=== PATIENT | female | born 1980 | race Caucasian/White ===

== ENCOUNTER 2016-09-15 22:11 | Emergency (ER) | payer OTHER ==
[2016-09-15] MEDS ORDERED: SODIUM CHLORIDE 0.9% 1,000 ML IV SCH (22:52)
[2016-09-15] MEDS ORDERED: ACETAMINOPHEN TAB 500 MG TAB PO STA (22:52)
[2016-09-15] MEDS ORDERED: RX INFO: IV CONTRAST WAS GIVEN 1 EACH MISC MISCELLANE PRN (22:54)
--- NOTE | 2016-09-15 23:04 | ED ---
General Adult HPI - General Chief complaint: Skin/Abscess/Foreign Body Stated complaint: lump on neck Time Seen by Provider: 09/15/16 22:35 Source: patient Mode of arrival: ambulatory Limitations: no limitations - History of Present Illness Initial comments: Patient is a previously healthy 36-year-old female who presents to the emergency department this evening for evaluation of a lump on the right side of her neck. Patient states that last week she was experiencing some viral URI- like symptoms, she attributed this to seasonal ALLERGIES and treated it symptomatically. She reports her symptoms have resolved. Patient states that she woke this morning with a swelling to her right side of her neck inferior to her ear. She states she thought this was a muscle spasm so she took some ibuprofen in the morning and attempted to dissuade the symptoms out. Patient reports that the swelling has persisted throughout the day and has become progressively more tender she has reevaluated it. Patient decided to come to the emergency department for further evaluation. Patient does report feeling somewhat fatigued but denies any subjective fever, chills nausea or vomiting. Patient reports she had dental work done in May but has had no subsequent for. She denies any recent oral infections or pharyngitis like symptoms. Patient denies any change in hearing, pain in the ears or tinnitus. She denies any visual changes or headaches. She denies any trauma to the neck. Patient reports no change in her voice or difficulty in swallowing. Reports she follows closely with her primary care physician and has been evaluated for thyroid problems in the past. She was advised to her thyroid levels were within the normal range but were low. She reports she's never had an ultrasound of her thyroid. - Related Data Previous Rx's Medication Instructions Recorded Clindamycin [Cleocin] 450 mg PO Q6H #28 capsule 09/16/16 Ibuprofen [Motrin] 800 mg PO Q8H #30 tab 09/16/16 Allergies Allergy/AdvReac Type Severity Reaction Status Date / Time venom-honey bee Allergy Swelling Verified 09/15/16 22:41 [bee venom (honey bee)] Review of Systems ROS Statement: Those systems with pertinent positive or pertinent negative responses have been documented in the HPI. ROS Other: All systems not noted in ROS Statement are negative. Constitutional: Denies: fever, chills Eyes: Denies: eye pain, vision change ENT: Denies: ear pain, throat pain, dental pain, hearing loss, epistaxis, congestion Respiratory: Denies: cough, dyspnea, wheezes Cardiovascular: Denies: chest pain, palpitations Endocrine: Denies: fatigue Gastrointestinal: Denies: abdominal pain, nausea Genitourinary: Denies: urgency, dysuria Musculoskeletal: Denies: back pain Skin: Denies: rash, lesions, change in color Neurological: Denies: headache, weakness, numbness, paresthesias, confusion, abnormal gait, vertigo Psychiatric: Denies: anxiety, depression Hematological/Lymphatic: Reports: swollen glands. Denies: easy bleeding, easy bruising Past Medical History Past Medical History: No Reported History History of Any Multi-Drug Resistant Organisms: None Reported Past Surgical History: Section Past Anesthesia/Blood Transfusion Reactions: Motion Sickness, Postoperative Nausea & Vomiting (PONV) Past Psychological History: No Psychological Hx Reported Smoking Status: Never smoker Past Alcohol Use History: None Reported Past Drug Use History: None Reported - Past Family History Father Family Medical History: Diabetes Mellitus, Hypertension, Myocardial Infarction ( [place]) Additional Family Medical History / Comment(s): General Exam Limitations: no limitations General appearance: alert, in no apparent distress, obese Head exam: Present: atraumatic, normocephalic, normal inspection, other (Scalp normal without lesions) Eye exam: Present: normal appearance, PERRL, EOMI. Absent: scleral icterus, conjunctival injection, periorbital swelling ENT exam: Present: normal exam, mucous membranes moist, TM's normal bilaterally , normal external ear exam Neck exam: Present: tenderness, lymphadenopathy (And her lymphadenopathy in the right posterior cervical chain). Absent: meningismus Respiratory exam: Present: normal lung sounds bilaterally. Absent: respiratory distress, wheezes, rales, rhonchi, stridor Cardiovascular Exam: Present: regular rate, normal rhythm, normal heart sounds. Absent: systolic murmur, diastolic murmur, rubs, gallop, clicks GI/Abdominal exam: Present: soft, normal bowel sounds. Absent: distended, tenderness, guarding, rebound, rigid Rectal exam: Present: deferred Extremities exam: Present: normal inspection, full ROM, normal capillary refill. Absent: tenderness, pedal edema, joint swelling, calf tenderness Back exam: Present: normal inspection Neurological exam: Present: alert, oriented X3, CN II-XII intact Psychiatric exam: Present: normal affect, normal mood Skin exam: Present: warm, dry, intact, normal color. Absent: rash Course Vital Signs 09/15/16 09/15/16 09/15/16 22:24 22:58 23:13 Temperature 100.8 F H Pulse Rate 99 102 H 99 Respiratory 20 18 18 Rate Blood Pressure 173/75 152/63 147/61 O2 Sat by Pulse 98 98 98 Oximetry 09/15/16 09/15/16 09/16/16 23:28 23:43 00:13 Temperature 100.0 F H Pulse Rate 103 H 102 H 102 H Respiratory 18 18 18 Rate Blood Pressure 152/74 147/65 131/63 O2 Sat by Pulse 98 98 96 Oximetry - Reevaluation(s) Reevaluation #1: Patient was reevaluated, is sitting comfortably in the ER bed. IV fluids are infusing. Heart rate is noted to have improved to high 90s. CT and lab results were discussed with the patient. Advised her that CT findings are consistent with acute lymphadenitis. Advised I'll be discharging her home on clindamycin. I discussed with her the side effect of diarrhea and advised she take probiotics with taking this medication. 09/16/16 00:50 EKG Findings - EKG Comments: EKG Findings:: EKG at 2300 rate of 106 rhythm is sinus tachycardia normal axis, normal intervals, OH 138 QRS 80 QTc 441. There is no acute ST elevations or depressions. No evidence of acute ischemia or infarction. Medical Decision Making - Medical Decision Making The patient was seen and evaluated Vital signs were reviewed, revealed tachycardia and fever History obtained from the patient Physical exam with a tender lymphadenopathy in the right neck A sepsis workup and CT of soft tissues of the neck was ordered Labs revealed mild leukocytosis with neutrophilia CT reveals lymphadenitis Results were discussed with the patient, advised the patient that she'll be discharged home on clindamycin. Discussed with the patient the side effect of clindamycin causing diarrhea and advised she be on probiotics will take this medication. Advised the patient to follow up with her primary care physician by the end of the week for reevaluation of her lymphadenitis. Advised patient to return to the emergency department for any acute worsening of the pain or swelling in her neck, worsening fever, inability to tolerate oral intake fourth keep down her antibiotics. Advised the patient that her CT did reveal a thyroid nodule she needs to discuss this with her primary care physician and have it followed up with an outpatient ultrasound. Patient expressed understanding. All questions pertaining to care were answered to the best of my ability. Patient was discharged home with Motrin, clindamycin for acute lymphadenitis. Patient was in stable condition upon discharge home. - Lab Data Result diagrams: 09/15/16 22:53 09/15/16 22:53 Lab Results 09/15/16 09/15/16 09/15/16 Range/Units 22:53 22:53 22:53 WBC 10.2 (3.8-10.6) k/uL RBC 4.86 (3.80-5.40) m/uL Hgb 12.1 (11.4-16.0) gm/dL Hct 38.7 (34.0-46.0) % MCV 79.6 L (80.0-100.0) fL MCH 25.0 (25.0-35.0) pg MCHC 31.4 (31.0-37.0) g/dL RDW 14.5 (11.5-15.5) % Plt Count 290 (150-450) k/uL Neutrophils % 78 % Lymphocytes % 15 % Monocytes % 5 % Eosinophils % 1 % Basophils % 0 % Neutrophils # 7.9 H (1.3-7.7) k/uL Lymphocytes # 1.5 (1.0-4.8) k/uL Monocytes # 0.5 (0-1.0) k/uL Eosinophils # 0.1 (0-0.7) k/uL Basophils # 0.0 (0-0.2) k/uL PT (9.0-12.0) sec INR (<1.2) APTT (22.0-30.0) sec Sodium 140 (137-145) mmol/L Potassium 4.2 (3.5-5.1) mmol/L Chloride 104 (98-107) mmol/L Carbon Dioxide 26 (22-30) mmol/L Anion Gap 10 mmol/L BUN 8 (7-17) mg/dL Creatinine 0.60 (0.52-1.04) mg/dL Est GFR (MDRD) Af Amer >60 (>60 ml/min/1.73 sqM) Est GFR (MDRD) Non-Af >60 (>60 ml/min/1.73 sqM) Glucose 94 (74-99) mg/dL Plasma Lactic Acid Eduardo 0.8 (0.7-2.0) mmol/L Calcium 9.5 (8.4-10.2) mg/dL Total Bilirubin 0.4 (0.2-1.3) mg/dL AST 19 (14-36) U/L ALT 37 (9-52) U/L Alkaline Phosphatase 84 (38-126) U/L Total Protein 7.3 (6.3-8.2) g/dL Albumin 4.2 (3.5-5.0) g/dL Urine Color Urine Appearance (Clear) Urine pH (5.0-8.0) Ur Specific [place] (1.001-1.035) Urine Protein (Negative) Urine Glucose (UA) (Negative) Urine Ketones (Negative) Urine Blood (Negative) Urine Nitrite (Negative) Urine Bilirubin (Negative) Urine Urobilinogen (<2.0) mg/dL Ur Leukocyte Esterase (Negative) 09/15/16 09/15/16 Range/Units 22:53 23:50 WBC (3.8-10.6) k/uL RBC (3.80-5.40) m/uL Hgb (11.4-16.0) gm/dL Hct (34.0-46.0) % MCV (80.0-100.0) fL MCH (25.0-35.0) pg MCHC (31.0-37.0) g/dL RDW (11.5-15.5) % Plt Count (150-450) k/uL Neutrophils % % Lymphocytes % % Monocytes % % Eosinophils % % Basophils % % Neutrophils # (1.3-7.7) k/uL Lymphocytes # (1.0-4.8) k/uL Monocytes # (0-1.0) k/uL Eosinophils # (0-0.7) k/uL Basophils # (0-0.2) k/uL PT 9.9 (9.0-12.0) sec INR 1.0 (<1.2) APTT 25.0 (22.0-30.0) sec Sodium (137-145) mmol/L Potassium (3.5-5.1) mmol/L Chloride (98-107) mmol/L Carbon Dioxide (22-30) mmol/L Anion Gap mmol/L BUN (7-17) mg/dL Creatinine (0.52-1.04) mg/dL Est GFR (MDRD) Af Amer (>60 ml/min/1.73 sqM) Est GFR (MDRD) Non-Af (>60 ml/min/1.73 sqM) Glucose (74-99) mg/dL Plasma Lactic Acid Eduardo (0.7-2.0) mmol/L Calcium (8.4-10.2) mg/dL Total Bilirubin (0.2-1.3) mg/dL AST (14-36) U/L ALT (9-52) U/L Alkaline Phosphatase (38-126) U/L Total Protein (6.3-8.2) g/dL Albumin (3.5-5.0) g/dL Urine Color Light Yellow Urine Appearance Clear (Clear) Urine pH 6.5 (5.0-8.0) Ur Specific [place] 1.014 (1.001-1.035) Urine Protein Negative (Negative) Urine Glucose (UA) Negative (Negative) Urine Ketones Negative (Negative) Urine Blood Negative (Negative) Urine Nitrite Negative (Negative) Urine Bilirubin Negative (Negative) Urine Urobilinogen <2.0 (<2.0) mg/dL Ur Leukocyte Esterase Negative (Negative) Disposition Clinical Impression: Lymphadenitis, acute, Thyroid nodule Disposition: HOME SELF-CARE Condition: Good Instructions: Clindamycin (By mouth), Lymphadenopathy (ED) Prescriptions: Clindamycin [Cleocin] 450 mg PO Q6H #28 capsule Ibuprofen [Motrin] 800 mg PO Q8H #30 tab Referrals: Eliz Souza MD [Primary Care Provider] - 1-2 days Time of Disposition: 00:58
[2016-09-15 23:06] VITALS: RESP 18
[2016-09-15] MEDS: SODIUM CHLORIDE 0.9% 500 ML IV SCH ×2 (23:10→23:57)
[2016-09-15 23:15] LABS: Basophils % (A) 0 %; CH 25.5; CHCM 32.1; Eosinophils # (A) 0.1 k/uL (0-0.7); Eosinophils % (A) 1 %; HCT 38.7 % (34.0-46.0); HDW 2.76; HGB 12.1 gm/dL (11.4-16.0); Luc # (Auto) 0.11; Luc % (Auto) 1; Lymphocytes # (A) 1.5 k/uL (1.0-4.8); Lymphocytes % (A) 15 %; MCHC 31.4 g/dL (31.0-37.0); MCV 79.6 fL (80.0-100.0); Mean Platelet Volume 7.6; Monocytes # (A) 0.5 k/uL (0-1.0); Monocytes % (A) 5 %; Neutrophils # (A) 7.9 k/uL (1.3-7.7); Neutrophils % (A) 78 %; RBC 4.86 m/uL (3.80-5.40); RDW 14.5 % (11.5-15.5); WBC 10.2 k/uL (3.8-10.6); WBC (Perox) 9.89
[2016-09-15 23:25] LABS: ALT 37 U/L (9-52); AST 19 U/L (14-36); Alkaline Phosphatase 84 U/L (38-126); Anion Gap 10 mmol/L; Blood Urea Nitrogen 8 mg/dL (7-17); Calcium 9.5 mg/dL (8.4-10.2); Carbon Dioxide 26 mmol/L (22-30); Chloride 104 mmol/L (98-107); Glucose 94 mg/dL (74-99); Non-African American GFR(MDRD) >60 (>60 ml/min/1.73 sqM); Potassium 4.2 mmol/L (3.5-5.1); Sodium 140 mmol/L (137-145); Total Bilirubin 0.4 mg/dL (0.2-1.3); Total Protein 7.3 g/dL (6.3-8.2)
[2016-09-15 23:26] LABS: Prothrombin Time 9.9 sec (9.0-12.0)
[2016-09-16 00:13] LABS: Appearance,Urine Clear (Clear); Bilirubin,Urine Negative (Negative); Glucose,Urine (UA) Negative (Negative); Ketones,Urine Negative (Negative); Leukocyte Esterase,Urine Negative (Negative); Nitrite,Urine Negative (Negative); PH, Urine 6.5 (5.0-8.0); Protein,Urine Negative (Negative); Specific Gravity,Urine 1.014 (1.001-1.035); UA Billing (MACRO vs. MICRO) CHEM; Urobilinogen,Urine <2.0 mg/dL (<2.0)
[2016-09-16] MEDS: SODIUM CHLORIDE 0.9% 500 ML IV SCH (00:29)
--- NOTE | 2016-09-16 00:33 | CT ---
EXAM: CT Neck With Intravenous Contrast CLINICAL HISTORY: Reason: Pain TECHNIQUE: Axial computed tomography images of the neck with intravenous contrast. CTDI is 27.80 mGy and DLP is 886.80 mGy-cm. This CT exam was performed using one or more of the following dose reduction techniques: automated exposure control, adjustment of the mA and/or kV according to patient size, and/or use of iterative reconstruction technique. CONTRAST: 100 mL of Omni 300 administered intravenously. COMPARISON: None FINDINGS: Nasopharynx: Unremarkable. Oropharynx: Unremarkable. No significant tonsillar enlargement. No peritonsillar abscess. Hypopharynx: Unremarkable. Larynx: Unremarkable. Normal epiglottis. Trachea: Unremarkable. Retropharyngeal space: Unremarkable. Submandibular/parotid glands: Unremarkable. Glands are normal in size. Thyroid: 3.1 x 2.1 cm solid enhancing nodule within the lower pole of the left lobe of the thyroid gland. Bones/joints: No acute fracture. Soft tissues: Unremarkable. Vasculature: No acute findings. Lymph nodes: 11 mm short axis right level III lymph node. 11 mm short axis right level II lymph node. Numerous smaller level II lymph nodes on the right with fat stranding around the lymph nodes. Fat stranding is visualized extending out around the sternocleidomastoid mastoid muscle as well as the paraspinous musculature. Lung apices: Unremarkable as visualized. IMPRESSION: 1. Mildly enlarged right level II and level III lymph nodes along with numerous smaller non-pathologically enlarged level II lymph nodes. Fat stranding around these level II lymph nodes indicate acute lymphadenitis. No evidence of neck abscess. 2. Solid thyroid nodule located within the lower pole of the left thyroid lobe measuring 3.1 x 2.1 cm. Nonemergent ultrasonographic evaluation of the thyroid is recommended for further evaluation.
[2016-09-16] MEDS ORDERED: CLINDAMYCIN 150 MG CAP PO STA (00:55)
[2016-09-16 01:17] VITALS: BP 132/59; PULSE 99; TEMP 99.2
== END 2016-09-16 01:16 | disposition home or self-care (01) ==
LOC: EC 22:11
DX: I88.9 Nonspecific lymphadenitis, unspecified (principal); E04.1 Nontoxic single thyroid nodule; R00.0 Tachycardia, unspecified; Z91.030 Bee allergy status
CPT/HCPCS: 36415; 93005; 80053; 83605; 85025; 85610; 85730; 81003; 87040; 87086; 70491; 99284; 96360; 96361; Q9967

== ENCOUNTER → 2016-10-02 | Outpatient (CLI) | payer OTHER ==
[2016-10-02 09:38] LABS: CH 25.7; CHCM 31.9; HCT 35.5 % (34.0-46.0); HGB 11.4 gm/dL (11.4-16.0); Hypochromasia Slight; MCH 25.8 pg (25.0-35.0); MCV 80.6 fL (80.0-100.0); Mean Platelet Volume 8.1; RDW 15.6 % (11.5-15.5); WBC 7.5 k/uL (3.8-10.6)
[2016-10-02 09:44] LABS: Potassium 4.2 mmol/L (3.5-5.1)
--- NOTE | 2016-10-02 09:54 | CT ---
EXAMINATION TYPE: CT soft tissue neck w con DATE OF EXAM: 10/02/2016 HISTORY: Mass, swelling on right side, thyroid nodule left. Fever and chills. COMPARISON: CT soft tissue neck dated 09/15/2016. CT DLP: 740.70 mGycm. Automated Exposure Control for Dose Reduction was Utilized. TECHNIQUE: CT scan of the neck is performed with IV Contrast, patient injected with 100 ml mL of Omn ipaque 300, axial images are obtained, coronal and sagittal reformatted images are reviewed. FINDINGS: Lymph nodes: The previously seen 11 mm short axis right level 3 lymph node has decreased in size 9 mm . The previously seen 11 mm short axis level 2 lymph node has also decreased in size measuring 8 mm. Numerous other level 2 lymph nodes on the right that are rounded in morphology persists but have over all decreased in size. Degree of fat stranding is also improved in the interim although mild fat stra nding persists. No fluid collection to suggest abscess is seen. Fat stranding is now localized betwee n the paraspinous musculature and sternocleidomastoid. No evidence of jugular vein thrombosis. Airway: No gross abnormality seen. Parotid/submandibular glands: No gross abnormality seen. Carotid/Vascular Structures: No significant stenosis. Osseous Structures: Osseous structures are intact and unremarkable. Other: There is redemonstration of a heterogenous approximately 3.1 x 2.1 cm mass within the left lob e of thyroid with extension of the thyroid tissue and mass into the superior mediastinum, substernall y. IMPRESSION: 1. Overall improvement in the degree of right-sided lymphadenopathy and fat stranding surrounding the level 2 and level 3 lymph nodes. Findings are most compatible with resolving lymphadenitis although continued follow-up is recommended to exclude other etiologies such as lymphoma or head and neck canc er such as squamous cell carcinoma. No adjacent jugular vein thrombosis is seen. 2. Redemonstration of a complex left thyroid mass within an enlarged substernal thyroid gland for whi ch further characterization with ultrasound is again recommended. Note the patient is scheduled for u ltrasound of the thyroid today (10/02/2016).
--- NOTE | 2016-10-02 10:11 | US ---
EXAMINATION TYPE: US thyroid st tissue head/neck DATE OF EXAM: 10/02/2016 COMPARISON: CT 2017 CLINICAL HISTORY: E04.1 thyroid nodule. GLAND SIZE: Right Lobe: 4.8 x 1.9 x 2.0 cm Overall Parenchyma: heterogenous Left Lobe: 6.0 x 3.8 x 2.8 cm Overall Parenchyma: heterogeneous Isthmus Thickness: 0.6 cm NODULES RIGHT: # of nodules measured on right: 2 1. 1.1 X 1.1 x 1.0 cm hypoechoic mixed nodule at the mid pole with well-defined margins; present wi th microcalcifications. This nodule is wider than tall and shows no intranodular vascularity. Prior size: no prior US 2. 0.6 X 0.6 x 0.5 cm hypoechoic solid nodule at the mid lower pole with well-defined margins; . Th is nodule is wider than tall and shows no intranodular vascularity. LEFT: # of nodules measured on left: 1 1. 4.5 X 3.5 x 2.7 cm hypoechoic mixed nodule at the mid pole with well-defined margins. This nodul e is wider than tall and shows intranodular vascularity. Prior size: See CT ISTHMUS: # of nodules measured in the isthmus: [address] report for lymphadenopathy. IMPRESSION: Bilateral thyroid nodules. Findings correlate with the CT findings. Consider correlation with nuclear medicine thyroid scan.
== END | disposition home or self-care (01) ==
LOC: RADCTMAIN 09:00
PROVIDERS: ATTEND Otolaryngology Facial Plastic Surgery
DX: E07.89 Other specified disorders of thyroid (principal); E04.9 Nontoxic goiter, unspecified; R59.0 Localized enlarged lymph nodes
CPT/HCPCS: 84439; 84481; 80051; 84443; 85027; 76536; 70491; Q9967

== ENCOUNTER 2016-10-27 12:38 | Day surgery (SDC) | payer OTHER ==
[2016-10-27 13:08] VITALS: TEMP 97.4
--- NOTE | 2016-10-27 13:51 | US ---
ULTRASOUND GUIDED FNA THYROID BIOPSY: CLINICAL HISTORY: 1 cm right thyroid nodule and 4.5 cm left thyroid nodule FINDINGS: The procedure was explained to the patient. The risks, complications, benefits and alternatives were discussed and any questions were answered. Informed consent was obtained. Patient was placed supin e on the ultrasound table and prepped and draped in the usual sterile fashion. Utilizing a 25 gauge needle, five passes were made into the right and left thyroid nodules requested. Patient was stable throughout the procedure. Pathology is pending. All elements of maximal barrier technique were utilized. IMPRESSION: 1. Successful ultrasound guided FNA thyroid biopsy.
[2016-10-27 13:59] VITALS: BP 131/79; PULSE 81; RESP 16
== END 2016-10-27 14:00 | disposition home or self-care (01) ==
LOC: RADPROMAIN 12:38
PROVIDERS: ATTEND Otolaryngology Facial Plastic Surgery
DX: E04.2 Nontoxic multinodular goiter (principal)
CPT/HCPCS: 10022; 76942; 88173; 88305

== ENCOUNTER → 2018-06-08 | Outpatient (CLI) | payer OTHER ==
--- NOTE | 2018-06-08 13:13 | CT ---
EXAMINATION TYPE: CT chest wo/w con DATE OF EXAM: 06/08/2018 COMPARISON: NONE HISTORY: Pulmonary nodule CT DLP: 1761.00 mGycm. Automated Exposure Control for Dose Reduction was Utilized. TECHNIQUE: CT scan of the thorax is attempted following without and with IV Contrast, patient inject ed with 100 ml mL of Isovue 300. FINDINGS: Exam noted suboptimal secondary to patient's large body habitus, in addition post contrast images show poor intravascular opacification. LUNGS: The lungs are grossly clear. There is no pleural effusion or pneumothorax seen. The tracheo bronchial tree is patent. There is posterior right basilar nodule axial image 55 and coronal image 79 series 6 measuring 1.1 x 0.7 cm x 1.1 cm craniocaudal dimension. No additional suspicious nodules or masses are present. MEDIASTINUM: There are no greater than 1 cm hilar or mediastinal lymph nodes clearly identified. No cardiomegaly or pericardial effusion is seen. OTHER: Spine is straightened with multilevel mild spurring. IMPRESSION: Posterior right basilar 1.1 x 0.7 x 1.[address] at [address] as per Fleischner Society recommendations based on clinical correlation if patient does not have prior a t outside institute to assess for interval change.
== END | disposition home or self-care (01) ==
LOC: RADCTMAIN 10:55
PROVIDERS: ATTEND Family Medicine
DX: R91.1 Solitary pulmonary nodule (principal)
CPT/HCPCS: 71270; Q9967

== ENCOUNTER → 2018-07-16 | Outpatient (CLI) | payer OTHER ==
--- NOTE | 2018-07-18 14:10 | PE ---
Nuclear medicine PET/CT HISTORY: Pulmonary nodule, initial Patient received 10.1 mCi F-18 FDG intravenously in delayed scanning was performed from the skull bas e to the mid thighs. Localization and attenuation correction CT scan was performed. Correlation to CT chest 06/08/2018 neck and CHEST: The pulmonary nodule noted in the posterior lung base is again seen on the right, the re is a suggestion of central calcification, no suspicious hypermetabolic uptake. There is no mediast inal, axillary, or hilar adenopathy. No pleural or pericardial effusion. ABDOMEN: Spleen is enlarged. Probable gallstone within the gallbladder. No retroperitoneal adenopathy . Along the abdominal wall laterally at the level of the pelvis small area of increased uptake is not ed without definite underlying mass may be physiologic. No free fluid or pelvic adenopathy. Osseous structures are within normal limits. IMPRESSION: The lung nodule at the right lung base does not show associated hypermetabolic uptake, ex am may be limited by technical factors, the size of the nodule. Indeterminate focus of activity along the abdominal wall questionable clinical significance. Cholelithiasis. Splenomegaly.
== END | disposition home or self-care (01) ==
LOC: RADPETMAIN 13:40
PROVIDERS: ATTEND Nurse Practitioner
DX: R91.1 Solitary pulmonary nodule (principal); R16.1 Splenomegaly, not elsewhere classified; K80.20 Calculus of gallbladder without cholecystitis without obstruction
CPT/HCPCS: 78815; A9552

== ENCOUNTER → 2019-03-20 | Outpatient (CLI) | payer OTHER ==
--- NOTE | 2019-03-20 11:42 | CT ---
EXAMINATION TYPE: CT chest wo con DATE OF EXAM: 03/20/2019 COMPARISON: Chest CT June 08, 2018 and PET/CT May 16, 2018 HISTORY: Follow up to lung nodule CT DLP: 877.6 mGycm. Automated Exposure Control for Dose Reduction was Utilized. TECHNIQUE: CT scan of the thorax is performed without IV contrast. FINDINGS: LUNGS: Low lung volumes redemonstrated. The lungs are grossly clear, there is no new concerning paren chymal mass or nodule identified. Stable posterior right basilar nodule measuring 9 x 8 x 10 mm axia l image 52 series 3 and coronal image 95 that is noted ametabolic There is no pleural effusion or pne umothorax seen. The tracheobronchial tree is patent. MEDIASTINUM: Lack of IV contrast is noted to limit evaluation for mediastinal and especially hilar ad enopathy. There are no definitive greater than 1 cm hilar or mediastinal lymph nodes. No cardiomega ly or pericardial effusion is seen. OTHER: Intraluminal 1.9 cm gallstone axial image 56. Spine is straightened on sagittal images. IMPRESSION: Stable 1.0 cm posterior right basilar nodule. No new nodules evident.
== END | disposition home or self-care (01) ==
LOC: RADCTMAIN 11:07
PROVIDERS: ATTEND Internal Medicine Pulmonary Disease
DX: R91.1 Solitary pulmonary nodule (principal); G47.33 Obstructive sleep apnea (adult) (pediatric); G47.34 Idiopathic sleep related nonobstructive alveolar hypoventilation; E03.9 Hypothyroidism, unspecified; E66.01 Morbid (severe) obesity due to excess calories
CPT/HCPCS: 71250

== ENCOUNTER → 2019-11-07 | Outpatient (CLI) | payer OTHER ==
[2019-11-07 13:12] VITALS: BP 152/80; PULSE 85; TEMP 98.5; BMI 59.2
--- NOTE | 2019-11-07 15:38 | P.HPBAR ---
Bariatric H&P - History & Physicial H&P Date: 11/07/19 History & Physicial: Visit/CC: initial clinic visit Patient initial contact: Initial weight: Initial weight in pounds: Height: 5 ft 5 in Initial BMI: Last weight: Current weight: 161.479 kg Current weight in pounds: 356.00 Current BMI: 59.2 [place] body weight (based on NIH guidelines): 56.699 kg Excess body weight loss: The patient is a 39 year-old F who presents for Bariatric Assessment. Patient presents to the clinic today for new bariatric evaluation. Patient is interested in sleeve gastrectomy. Patient states her heaviest weight was 400 pounds. Patient had previous thyroid disease and underwent thyroidectomy. W eight has improved somewhat since that time. Finishing high school she was 20 or 50 pounds. Her weight has been affecting her more lately. Patient suffers from sleep apnea, hypothyroidism, anemia, various joint discomforts. Surgical history includes and thyroidectomy. No tobacco use. No significant reflux disease. Denies DVT or dysphagia. Patient is not interested in gastric bypass. Review of Systems The patient denies any acute changes in vision or hearing, no dysphagia or odynophagia, no chest pain or shortness of breath, no dysuria or hematuria, no headache, no runny nose, no rectal bleeding or melena, no unexplained weight loss Past Medical History Past Medical History: Sleep Apnea/CPAP/BIPAP, Thyroid Disorder History of Any Multi-Drug Resistant Organisms: None Reported Past Surgical History: Section Additional Past Surgical History / Comment(s): thyroidectomy Past Anesthesia/Blood Transfusion Reactions: Motion Sickness, Postoperative Nausea & Vomiting (PONV) Past Psychological History: No Psychological Hx Reported Smoking Status: Never smoker Past Alcohol Use History: None Reported Past Drug Use History: None Reported - Past Family History Father Family Medical History: Diabetes Mellitus, Hypertension, Myocardial Infarction ([place]) Additional Family Medical History / Comment(s): Surgical - Exam Vital Signs Temp Pulse BP 98.5 F 85 152/80 11/07/19 13:11/07/19 13:11/07/19 13:09 Physical exam: General: Well-developed, well-nourished HEENT: Normocephalic, sclerae nonicteric Abdomen: Nontender, nondistended Extremities: No edema Neuro: Alert and oriented Bariatric Assessment & Plan (1) Morbid obesity with BMI of 50.0-59.9, adult Narrative/Plan: 39-year-old female with morbid obesity. Patient is interested in proceeding with sleeve gastrectomy. Risks and benefits of both lap sleeve gastrectomy and laparoscopic gastric bypass reviewed in detail. The expected did average weight losses with both procedures was reviewed as well. The patient understands that she might have better weight loss with gastric bypass but is not interested in the risk profile at this time. Patient will require supervised weight loss. We'll plan EGD 4-5 months from now. Will see the patient in the office following that to make final arrangements for sleeve gastrectomy. Status: Acute Bariatric Checklist Checklist: Plan: Checklist: EGD: 1. Hiatal hernia: 2. H. Pylori: HgbA1c: Vitamin D: Smoking: Never smoker Primary care physician referral: dr loo Psychiatry clearance: Cardiology clearance: Sleep study: Diet journal: VTE risk score: VTE risk level: Rehab needs at discharge:
== END | disposition home or self-care (01) ==
LOC: BARWHC3 12:34
PROVIDERS: ATTEND Surgery
DX: E66.01 Morbid (severe) obesity due to excess calories (principal); Z68.43 Body mass index [BMI] 50.0-59.9, adult
CPT/HCPCS: 99211

== ENCOUNTER → 2020-06-13 | Outpatient (CLI) | payer OTHER ==
--- NOTE | 2020-06-13 11:54 | MM ---
Reason for exam: screening (asymptomatic). Baseline mammogram. History: Family history of breast cancer in maternal grandmother. Took hormonal contraceptives for 1 year beginning at age 17. Physical Findings: Nurse did not find any significant physical abnormalities on exam. MG Screening Mammo w CAD Bilateral CC and MLO view(s) were taken. There are scattered fibroglandular densities. There is no discrete abnormality. These results were verbally communicated with the patient and result sheet given to the patient on 06/13/20. ASSESSMENT: Benign, BI-RAD 2 RECOMMENDATION: Routine screening mammogram of both breasts in 1 year.
== END | disposition home or self-care (01) ==
LOC: RADMAMWWP 11:02
PROVIDERS: ATTEND Obstetrics & Gynecology
DX: Z12.31 Encounter for screening mammogram for malignant neoplasm of breast (principal); Z80.3 Family history of malignant neoplasm of breast
CPT/HCPCS: 77067

== ENCOUNTER 2020-07-23 10:16 | Day surgery (SDC) | payer OTHER ==
[2020-07-17 16:03] VITALS: BMI 57.4
[~2020-07-23 10:16] MED LIST: LACTATED RINGERS 1,000 ML IV SCH; LIDOCAINE 1% (10MG/ML) FOR IV START INTRADERMA PRN
[2020-07-23 10:49] VITALS: TEMP 99.1
[2020-07-23] MEDS ORDERED: LIDOCAINE 1% (10MG/ML) FOR IV START INTRADERMA ONE (11:00)
[2020-07-23] MEDS ORDERED: PROPOFOL 10 MG/ML 20 ML VIAL IV ONE (12:05)
[2020-07-23] MEDS ORDERED: LIDOCAINE 1% INJ 10MG/ML (20 ML MDV) ONE (12:05)
--- NOTE | 2020-07-23 12:20 | P.GSHP ---
History of Present Illness H&P Date: 07/23/20 Chief Complaint: Epigastric pain 40-year-old female being evaluated for sleep gastrectomy. Complaints of mild epigastric pain at times. No reflux. No dysphagia. Here for upper endoscopy. Past Medical History Past Medical History: Cancer, Sleep Apnea/CPAP/BIPAP, Thyroid Disorder Additional Past Medical History / Comment(s): Hx Thyroid Cancer 2017. CPAP use. History of Any Multi-Drug Resistant Organisms: None Reported Past Surgical History: Section, Tubal Ligation Additional Past Surgical History / Comment(s): Thyroidectomy. Past Anesthesia/Blood Transfusion Reactions: Motion Sickness, Postoperative Nausea & Vomiting (PONV) Past Psychological History: No Psychological Hx Reported Smoking Status: Never smoker Past Alcohol Use History: None Reported Past Drug Use History: None Reported - Past Family History Father Family Medical History: Diabetes Mellitus, Hypertension, Myocardial Infarction ([place]) Additional Family Medical History / Comment(s): . Medications and Allergies Home Medications Medication Instructions Recorded Confirmed Type Ferrous Sulfate, Dried [Iron] 64 mg PO DAILY 11/07/19 07/23/20 History Levothyroxine Sodium [Synthroid] 200 mcg PO QAM 11/07/19 07/23/20 History Cholecalciferol [Vitamin D3 (25 25 mcg PO DAILY 07/17/20 07/23/20 History Mcg = 1000 Iu)] Allergies Allergy/AdvReac Type Severity Reaction Status Date / Time venom-honey bee Allergy Swelling Verified 07/23/20 10:48 [bee venom (honey bee)] Surgical - Exam Vital Signs Temp Pulse Resp BP Pulse Ox 99.1 F 91 16 149/67 96 07/23/20 10:37 07/23/20 10:37 07/23/20 10:37 07/23/20 10:37 07/23/20 10:37 Physical exam: General: Well-developed, well-nourished HEENT: Normocephalic, sclerae nonicteric Abdomen: Nontender, nondistended Extremities: No edema Neuro: Alert and oriented Assessment and Plan (1) Epigastric pain Narrative/Plan: Will proceed with upper endoscopy. Current Visit: Yes Status: Acute Code(s): R10.13 - EPIGASTRIC PAIN SNOMED Code(s): 74135857
--- NOTE | 2020-07-23 12:29 | P.PCN ---
Date of Procedure: 07/23/20 Procedure(s) Performed: Preoperative Dx: Obesity, epigastric pain Postoperative Dx: Minimal gastritis Procedure: EGD with Bx Anesthesia: Sedation Endoscopist: Dr. Powell Specimens: Antrum Endoscopic Procedure: The patient was on the endoscopy table in the left decubitus position. The Olympus gastroscope was inserted into the oropharynx and passed under direct visualization to the region of the third portion of the duodenum. From that point the scope was slowly withdrawn inspecting all surfaces carefully. There were no neoplastic inflammatory or polypoid lesions throughout the duodenum. The pylorus was widely patent. The stomach was carefully inspected. There was minimal gastritis present. A biopsy of the antrum took place to rule out H. pylori. Retroflexion revealed a normal hiatus. The esophagus was then carefully examined. There were no neoplastic inflammatory or polypoid lesions throughout the visualized esophagus. The patient was then taken to the recovery room in stable condition per anesthesia guidelines. Recommendations: Await biopsy results. Follow-up in bariatric center.
[2020-07-23 12:51] VITALS: BP 110/70; PULSE 78; RESP 18
== END 2020-07-23 13:05 | disposition home or self-care (01) ==
LOC: ORWHC2ENDO 10:16
PROVIDERS: ATTEND Surgery
DX: K29.50 Unspecified chronic gastritis without bleeding (principal); E66.9 Obesity, unspecified; Z68.43 Body mass index [BMI] 50.0-59.9, adult; G47.30 Sleep apnea, unspecified; E07.9 Disorder of thyroid, unspecified; Z85.850 Personal history of malignant neoplasm of thyroid; E89.0 Postprocedural hypothyroidism; Z98.891 History of uterine scar from previous surgery; Z98.51 Tubal ligation status; Z83.3 Family history of diabetes mellitus; Z82.49 Family history of ischemic heart disease and other diseases of the circulatory system; Z79.890 Hormone replacement therapy; Z91.030 Bee allergy status
CPT/HCPCS: 81025; 88305; 43239; J2001; J2704

== ENCOUNTER → 2020-08-13 | Outpatient (CLI) | payer OTHER ==
[2020-08-13 13:52] VITALS: BP 126/81; PULSE 74; RESP 16; TEMP 98.4
[2020-08-13 14:56] LABS: HGB 11.7 gm/dL (11.4-16.0); MCH 25.7 pg (25.0-35.0); MCHC 32.4 g/dL (31.0-37.0); MCV 79.3 fL (80.0-100.0); Mean Platelet Volume 7.8; Platelet Count 231 k/uL (150-450); RBC 4.54 m/uL (3.80-5.40); RDW 14.5 % (11.5-15.5); WBC 6.3 k/uL (3.8-10.6)
--- NOTE | 2020-08-13 21:21 | P.BASOAP ---
Subjective Progress Note Date: 08/13/20 Principal diagnosis: Morbid obesity Patient returns for bariatric follow-up. Underwent EGD on 525. Patient found to have minimal gastritis. Says she has 1 more supervised weight loss visits. Objective - Vital Signs Vital signs: Vital Signs Temp 98.4 F 08/13/20 13:46 Pulse 74 08/13/20 13:46 Resp 16 08/13/20 13:46 BP 126/81 08/13/20 13:46 Pulse Ox - Exam Abdomen: Soft, nontender, nondistended - Labs CBC & Chem 7: 08/13/20 14:20 Labs: Abnormal Lab Results - Last 24 Hours (Table) 08/13/20 Range/Units 14:20 MCV 79.3 L (80.0-100.0) fL Assessment/Plan (1) Morbid obesity with BMI of 50.0-59.9, adult Narrative/Plan: Patient doing well at this time. No significant changes to the recent history and physical. Patient remains interested in surgical weight loss in the form of sleeve gastrectomy. Surgical consent form reviewed in detail. All questions answered. We'll proceed. Plan: Date: 08/13/20 Initial Weight: Initial BMI: Current Weight: Current BMI: Type of Surgery: Total Volume in Band: Previous Volume: Volume Removed: Volume Added: Band Size:
[2020-08-13 21:42] LABS: Hemoglobin A1C 5.1 % (4.0-6.0)
[2020-08-13 22:32] LABS: African American GFR (CKD) 130.3 (60.0-200.0); Albumin 4.3 g/dL (3.80-4.90); Albumin/Globulin Ratio 1.59 (1.60-3.17); Anion Gap 6.1 mmol/L (4.00-12.00); Calcium 8.7 mg/dL (8.7-10.3); Carbon Dioxide 25.9 mmol/L (21.6-31.8); Globulin 2.7 g/dL (1.6-3.3); Non-African American GFR(CKD) 112.4 (60.0-200.0); Potassium 4.1 mmol/L (3.5-5.5); Total Bilirubin 0.4 mg/dL (0.2-1.2)
[2020-08-13 22:40] LABS: Folate, Serum 9.1 ng/mL
== END | disposition home or self-care (01) ==
LOC: BARWHC3 13:05
PROVIDERS: ATTEND Surgery
DX: E66.01 Morbid (severe) obesity due to excess calories (principal); K90.89 Other intestinal malabsorption; E55.9 Vitamin D deficiency, unspecified; Z68.43 Body mass index [BMI] 50.0-59.9, adult
CPT/HCPCS: 84425; 80053; 82607; 82746; 83540; 85027; 82306; 83036; 93005; G0463; 99211

== ENCOUNTER → 2020-08-26 | Outpatient (CLI) | payer OTHER ==
[2020-08-26 11:47] VITALS: BMI 56.9
== END | disposition home or self-care (01) ==
LOC: BARWHC3 08:44
PROVIDERS: ATTEND Surgery
DX: E66.01 Morbid (severe) obesity due to excess calories (principal); Z71.3 Dietary counseling and surveillance
CPT/HCPCS: 97804

== ENCOUNTER → 2020-11-08 | Outpatient (CLI) | payer OTHER ==
[2020-11-08 12:55] LABS: Basophils % (A) 0 %; Eosinophils # (A) 0.1 k/uL (0-0.7); Eosinophils % (A) 1 %; HCT 35.6 % (34.0-46.0); HGB 11.8 gm/dL (11.4-16.0); Lymphocytes # (A) 1.4 k/uL (1.0-4.8); Lymphocytes % (A) 20 %; MCH 26.9 pg (25.0-35.0); MCHC 33.2 g/dL (31.0-37.0); Mean Platelet Volume 7.7; Monocytes # (A) 0.3 k/uL (0-1.0); Monocytes % (A) 4 %; Neutrophils # (A) 5.3 k/uL (1.3-7.7); Neutrophils % (A) 74 %; Platelet Count 285 k/uL (150-450); RBC 4.39 m/uL (3.80-5.40); RDW 14.4 % (11.5-15.5); WBC 7.2 k/uL (3.8-10.6)
[2020-11-08 13:23] LABS: ALT 41 U/L (4-34); AST 36 U/L (14-36); African American GFR (CKD) >90 (>60 ml/min/1.73 sqM); Alkaline Phosphatase 86 U/L (38-126); Anion Gap 8 mmol/L; Blood Urea Nitrogen 13 mg/dL (7-17); Carbon Dioxide 28 mmol/L (22-30); Chloride 101 mmol/L (98-107); Glucose 87 mg/dL (74-99); Non-African American GFR(CKD) >90 (>60 ml/min/1.73 sqM); Potassium 4.4 mmol/L (3.5-5.1); Sodium 137 mmol/L (137-145); Total Bilirubin 0.4 mg/dL (0.2-1.3); Total Protein 7.2 g/dL (6.3-8.2)
== END | disposition home or self-care (01) ==
LOC: LABPAT 10:54
PROVIDERS: ATTEND Surgery
DX: Z01.812 Encounter for preprocedural laboratory examination (principal)
CPT/HCPCS: 36415; 80053; 85025

== ENCOUNTER 2020-11-18 12:05 | Inpatient (IN) | payer OTHER ==
[~2020-11-18 12:05] MED LIST changes: +ACETAMINOPHEN TAB 500 MG TAB PO PRN; +ENOXAPARIN 40 MG/0.4 ML SYRINGE SQ PRN; -LACTATED RINGERS 1,000 ML IV SCH; -LIDOCAINE 1% (10MG/ML) FOR IV START INTRADERMA PRN; +ONDANSETRON 4 MG/2 ML VIAL IVP PRN; +ceFAZolin 3 GM in SODIUM CHLORIDE 0.9% 100 ML IVPB PRN
[2020-11-18] MEDS: LACTATED RINGERS 1,000 ML IV SCH (12:49)
[2020-11-18] MEDS ORDERED: DEXAMETHASONE SOD PHOSPHATE 4 MG/ML 1 ML VIAL IV ONE (12:56)
[2020-11-18] MEDS ORDERED: SCOPOLAMINE 1.5MG/72HR PATCH TRANSDERM ONE (12:57)
--- NOTE | 2020-11-18 13:10 | P.GSHP ---
History of Present Illness H&P Date: 11/18/20 Chief Complaint: morbid obesity 40-year-old female here today for elective sleeve gastrectomy. Patient was initially seen in October of last year. Last seen in the clinic in July. Patient underwent recent endoscopy showing mild gastritis. Patient initially on presentation had a BMI of 59. BMI today is 51.8. Patient suffers from sleep apnea and joint pain. No dysphagia or history of DVT. No hiatal hernia seen on recent EGD. Past Medical History Past Medical History: Cancer, Sleep Apnea/CPAP/BIPAP, Thyroid Disorder Additional Past Medical History / Comment(s): Hx Thyroid Cancer 2017. CPAP use. nodule on lung detected 2018 monitored by History of Any Multi-Drug Resistant Organisms: None Reported Past Surgical History: Section, Tubal Ligation Additional Past Surgical History / Comment(s): Thyroidectomy. Past Anesthesia/Blood Transfusion Reactions: Family History of Problems w/ Anesthesia, Motion Sickness, Postoperative Nausea & Vomiting (PONV) Additional Past Anesthesia/Blood Transfusion Reaction / Comment(s): mother takes extra time to come out of anesthesia Smoking Status: Never smoker - Past Family History Father Family Medical History: Diabetes Mellitus, Hypertension, Myocardial Infarction ([place]) Additional Family Medical History / Comment(s): . Medications and Allergies Home Medications Medication Instructions Recorded Confirmed Type Ferrous Sulfate, Dried [Iron] 64 mg PO DAILY 11/07/19 11/14/20 History Levothyroxine Sodium [Synthroid] 200 mcg PO MOTUWETHFR 11/07/19 11/18/20 History Cholecalciferol [Vitamin D3 (25 25 mcg PO DAILY 07/17/20 11/14/20 History Mcg = 1000 Iu)] Levothyroxine Sodium [Synthroid] 175 mcg PO SUSA 11/14/20 11/18/20 History Allergies Allergy/AdvReac Type Severity Reaction Status Date / Time venom-honey bee Allergy Swelling Verified 11/18/20 12:50 [bee venom (honey bee)] Surgical - Exam Vital Signs Temp Pulse Resp BP Pulse Ox 98.7 F 74 16 134/73 93 L 11/18/20 12:46 11/18/20 12:46 11/18/20 12:46 11/18/20 12:46 11/18/20 12:46 Physical exam: General: Well-developed, well-nourished HEENT: Normocephalic, sclerae nonicteric Abdomen: Nontender, nondistended Extremities: No edema Neuro: Alert and oriented Assessment and Plan (1) Morbid obesity with BMI of 50.0-59.9, adult Narrative/Plan: Will proceed with laparoscopic sleeve gastrectomy, possible open at this time. The risks of bleeding, infection, stenosis, stricture, leak, abscess, fistula formation, peritonitis, poor weight loss, reflux, vomiting, conversion to an open procedure, aborting sleeve gastrectomy, [place], PE, DVT, and were discussed. The patient understands and wishes to proceed. Current Visit: No Status: Acute Code(s): E66.01 - MORBID (SEVERE) OBESITY DUE TO EXCESS CALORIES; Z68.43 - BODY MASS INDEX [BMI] 50.0-59.9, ADULT SNOMED Code(s): 108018963
[2020-11-18] MEDS ORDERED: ROCURONIUM 10 MG/ML (5 ML VIAL) IV ONE (13:27)
[2020-11-18] MEDS ORDERED: MIDAZOLAM 2 MG/2 ML VIAL ONE (13:27)
[2020-11-18] MEDS ORDERED: LIDOCAINE 1% INJ 10MG/ML (20 ML MDV) ONE (13:27)
[2020-11-18] MEDS ORDERED: NEOSTIGMINE 1 MG/ML 10 ML VIAL ONE (13:27)
[2020-11-18] MEDS ORDERED: SUCCINYLCHOLINE CHLORIDE 100 MG/5 ML SYR IV ONE (13:27)
[2020-11-18] MEDS ORDERED: GLYCOPYRROLATE 0.2 MG/ML 2 ML VIAL ONE (13:27)
[2020-11-18] MEDS ORDERED: fentaNYL (PF) 50 MCG/ML 2 ML AMP ONE (13:27)
[2020-11-18] MEDS ORDERED: METHYLENE BLUE 10 MG/ML (10 ML VIAL) ONE (13:27)
[2020-11-18] MEDS ORDERED: HYDROmorphone (PF) 1 MG/ML ONE (13:27)
[2020-11-18] MEDS ORDERED: PROPOFOL 10 MG/ML 20 ML VIAL IV ONE (13:27)
[2020-11-18] MEDS ORDERED: BUPIVACAINE (PF) 0.5% 30 ML VIAL SQ ONE (14:04)
[2020-11-18] MEDS ORDERED: diphenhydrAMINE 50 MG/ML 1 ML VIAL IVP PRN (15:24)
[2020-11-18] MEDS ORDERED: NALOXONE 0.4 MG/ML 1 ML VIAL IV PRN (15:24)
--- NOTE | 2020-11-18 15:28 | P.OP ---
Date of Procedure: 11/18/20 Procedure(s) Performed: PREOPERATIVE DIAGNOSIS: Morbid obesity, sleep apnea, chronic joint pain POSTOPERATIVE DIAGNOSIS: Same PROCEDURE: Laparoscopic sleeve gastrectomy SURGEON: Sherry EBL: Minimal ANESTHESIA: General COMPLICATIONS: None OPERATIVE PROCEDURE: Patient was placed in the operating table in the supine position. She was placed under general anesthesia at that time. The abdomen was prepped and draped in sterile fashion after the patient was placed in lithotomy. A 5 mm optical trocar was used to enter the abdominal cavity in the left upper quadrant. Insufflation took place to 15 millimeters mercury. An additional right subxiphoid 5 mm trocar was then placed under direct visualization and then removed. 2 additional 5 mm trochars were placed in the right upper quadrant and left upper quadrant under direct visualization and a 15 mm trocar in the supraumbilical location. The liver was retracted using a medium Alonso liver retractor through the right subxiphoid trocar site. The hiatus was inspected. The patient had no visible hiatal hernia At that point I moved to the mid aspect of the greater curvature the stomach. The short gastric vasculature was divided using a LigaSure device proximally. I then switched and divided the short gastrics distally to a 3-4 cm from the pylorus. The dissection took place up to the left diaphragmatic crura at that point. The posterior short gastrics were likewise divided using the LigaSure device. Once the stomach was fully mobilized the blunt tipped 40-Armenian bougie dilator was advanced into the stomach and advanced all the way to the prepyloric location. A black echelon 60 stapler with echelon Endopath staple line reinforcement was utilized and fired tangentially across the antrum taking care to avoid narrowing at the incisura angularis. Subsequent firings of the green echelon 60 stapler with echelon Endopath staple line reinforcement took place proximally staying on the outer edge of our dilator. Once we reached the most proximal portion of the stomach a single firing of the gold echelon [address] The oral gastric tube was reinserted. The stomach was insufflated with approximately 100 mL of methylene blue. No evidence of leak or obstruction was seen. Tisseel fibrin glue was used along the length of the staple line. The stomach remnant was removed from the 15 mm trocar site without difficulty. The fascia at the 15 more site was closed using interrupted 0 Vicryl sutures with the laparoscopic suture passer and Natalio Adele technique. The insufflation was evacuated. The skin at all 5 incisions were closed using 4-0 Monocryl sutures. Skin glue was then applied. DISPOSITION: Stable to recovery room
[2020-11-18] MEDS ORDERED: HYDROmorphone 0.5 MG/0.5 ML SYRINGE IVP ONE (15:54)
[2020-11-18] MEDS ORDERED: LACTATED RINGERS 1,000 ML IV ONE ×2 (15:55)
[2020-11-18] MEDS: ONDANSETRON 4 MG/2 ML VIAL IVP PRN (16:33)
[2020-11-18] MEDS: 0.9% NACL WITH KCL 20 MEQ/L 1,000 ML IV SCH (17:15)
[2020-11-18] MEDS ORDERED: ACETAMINOPHEN IV (For NPO) 1,000 MG in EMPTY BAG 1 BAG IVPB ONE (18:00)
[2020-11-18] MEDS: HYDROmorphone 1 MG/ML 1 ML SYRINGE IVP PRN (18:02)
[2020-11-19] MEDS: ONDANSETRON 4 MG/2 ML VIAL IVP PRN ×2 (00:08→05:59)
[2020-11-19] MEDS: 0.9% NACL WITH KCL 20 MEQ/L 1,000 ML IV SCH ×2 (00:39→07:13)
[2020-11-19] MEDS: HYDROmorphone 1 MG/ML 1 ML SYRINGE IVP PRN ×4 (00:39→16:11)
[2020-11-19] MEDS: ENOXAPARIN 40 MG/0.4 ML SYRINGE SQ SCH ×2 (05:54→17:30)
[2020-11-19] MEDS: LACTATED RINGERS 1,000 ML IV SCH (07:13)
[2020-11-19] MEDS: PANTOPRAZOLE 40 MG/10 ML VIAL IV SCH (07:15)
[2020-11-19] MEDS: LEVOTHYROXINE 100 MCG TAB PO SCH (09:33)
[2020-11-19] MEDS: 1: MVI, ADULT NO.4 WITH VIT K 10 ML, THIAMINE 100 MG, FOLIC ACID 1 MG, POTASSIUM CHLORID IV SCH ×12 (10:27→17:51)
--- NOTE | 2020-11-19 10:57 | P.CONS ---
History of Present Illness - Reason for Consult Hypothyroidism - History of Present Illness Patient was a 40-year-old female is admitted for elective sleeve gastrectomy patient successfully underwent surgery. Patient all the is better patient will undergo upper GI endoscopy after which patient was started on diet. Medicine was consulted for management of hyperthyroidism patient takes 200 mcg of levothyroxine on weekdays and the 175 g of levothyroxine on the weekends. Patient pain is fairly well controlled. Patient was complaining of some epigastric abdominal discomfort and nausea REVIEW OF SYSTEMS: CONSTITUTIONAL: No fever, no malaise, no fatigue. HEENT: No recent visual problems or hearing problems. Denied any sore throat. CARDIOVASCULAR: No chest pain, orthopnea, PND, no palpitations, no syncope. PULMONARY: No shortness of breath, no cough, no hemoptysis. GASTROINTESTINAL: No diarrhea. NEUROLOGICAL: No headaches, no weakness, no numbness. HEMATOLOGICAL: Denies any bleeding or petechiae. GENITOURINARY: Denies any burning micturition, frequency, or urgency. MUSCULOSKELETAL/RHEUMATOLOGICAL: Denies any joint pain, swelling, or any muscle pain. ENDOCRINE: Denies any polyuria or polydipsia. The rest of the 14-point review of systems is negative. PHYSICAL EXAMINATION: GENERAL: The patient is alert and oriented x3, not in any acute distress. Well developed, well nourished. HEENT: Pupils are round and equally reacting to light. EOMI. No scleral icterus. No conjunctival pallor. Normocephalic, atraumatic. No pharyngeal erythema. No thyromegaly. CARDIOVASCULAR: S1 and S2 present. No murmurs, rubs, or gallops. PULMONARY: Chest is clear to auscultation, no wheezing or crackles. ABDOMEN: Soft, nontender, nondistended, normoactive bowel sounds. No palpable organomegaly. MUSCULOSKELETAL: No joint swelling or deformity. EXTREMITIES: No cyanosis, clubbing, or pedal edema. NEUROLOGICAL: Gross neurological examination did not reveal any focal deficits. SKIN: No rashes. Assessment and plan -Laparoscopic sleeve gastrectomy patient is doing well testing her BMI, recommend higher dose of Lovenox for DVT prophylaxis, which she is already on. -Hyperresonant continue with home dose of levothyroxine patient doesn't have any symptoms of Cardizem at this time -Sleep apnea patient uses CPAP machine at home DVT prophylaxis: Lovenox 40 mg subcutaneous twice a day which is an appropriate dose. Past Medical History Past Medical History: Cancer, Sleep Apnea/CPAP/BIPAP, Thyroid Disorder Additional Past Medical History / Comment(s): Hx Thyroid Cancer 2017. CPAP use. nodule on lung detected 2018 monitored by History of Any Multi-Drug Resistant Organisms: None Reported Past Surgical History: Section, Tubal Ligation Additional Past Surgical History / Comment(s): Thyroidectomy. Past Anesthesia/Blood Transfusion Reactions: Family History of Problems w/ Anesthesia, Motion Sickness, Postoperative Nausea & Vomiting (PONV) Additional Past Anesthesia/Blood Transfusion Reaction / Comm: mother takes extra time to come out of anesthesia Past Psychological History: No Psychological Hx Reported Smoking Status: Never smoker Past Alcohol Use History: None Reported Past Drug Use History: None Reported - Past Family History Father Family Medical History: Diabetes Mellitus, Hypertension, Myocardial Infarction ([place]) Additional Family Medical History / Comment(s): . Medications and Allergies Home Medications Medication Instructions Recorded Confirmed Type Ferrous Sulfate, Dried [Iron] 64 mg PO DAILY 11/07/19 11/14/20 History Levothyroxine Sodium [Synthroid] 200 mcg PO MOTUWETHFR 11/07/19 11/18/20 History Cholecalciferol [Vitamin D3 (25 25 mcg PO DAILY 07/17/20 11/14/20 History Mcg = 1000 Iu)] Levothyroxine Sodium [Synthroid] 175 mcg PO SUSA 11/14/20 11/18/20 History Allergies Allergy/AdvReac Type Severity Reaction Status Date / Time venom-honey bee Allergy Swelling Verified 11/18/20 12:50 [bee venom (honey bee)] Physical Exam Vitals: Vital Signs Temp Pulse Pulse Resp BP Pulse Ox 11/19/20 08:00 94 L 11/19/20 07:29 98.5 F 86 18 113/72 94 L 11/19/20 00:14 98.6 F 60 18 137/85 98 11/18/20 21:24 92 L 11/18/20 19:11 97.7 F 91 20 145/78 96 11/18/20 18:00 86 130/81 11/18/20 17:45 86 120/75 11/18/20 17:30 84 123/78 11/18/20 17:15 71 125/76 09/20/21 17:00 84 125/79 11/18/20 16:39 97.5 F L 76 18 117/75 97 11/18/20 16:14 71 16 122/55 98 11/18/20 16:00 79 16 123/57 97 11/18/20 15:45 75 17 125/59 96 11/18/20 15:31 97.3 F L 72 16 126/60 97 11/18/20 12:46 98.7 F 74 16 134/73 93 L Intake and Output 11/18/20 11/19/20 11/19/20 22:59 06:59 14:59 Intake Total 200 Output Total 20 Balance 180 Intake: IV 200 Output: Estimated Blood Loss 20 Other: # Voids 0 Weight 141.1 kg
[2020-11-19 11:47] LABS: Basophils # (A) 0.01 X 10*3/uL (0.00-0.10); Basophils % (A) 0.1 %; Eosinophils # (A) 0 X 10*3/uL (0.04-0.35); Eosinophils % (A) 0 %; HCT 37.7 % (37.2-46.3); HGB 11.4 g/dL (12.0-15.0); Lymphocytes # (A) 1.07 X 10*3/uL (0.90-5.00); Lymphocytes % (A) 11.9 %; MCH 25.1 pg (27.0-32.0); MCHC 30.2 g/dL (32.0-37.0); MCV 82.9 fL (80.0-97.0); Mean Platelet Volume 11.3 fL (9.5-12.2); Monocytes # (A) 0.57 X 10*3/uL (0.20-1.00); Monocytes % (A) 6.4 %; Neutrophils # (A) 7.29 X 10*3/uL (1.80-7.70); Neutrophils % (A) 81.3 %; Platelet Count 309 X 10*3/uL (140-440); RBC 4.55 X 10*6/uL (4.10-5.20); WBC 8.97 X 10*3/uL (4.50-10.00)
[2020-11-19 13:43] LABS: Calcium 8.7 mg/dL (8.7-10.3); Magnesium 2.2 mg/dL (1.5-2.4); Phosphorus 3.2 mg/dL (2.4-5.1)
[2020-11-19 13:44] LABS: African American GFR (CKD) 130.3 (60.0-200.0); Non-African American GFR(CKD) 112.4 (60.0-200.0)
--- NOTE | 2020-11-19 13:59 | FL ---
EXAMINATION TYPE: FL UGI DATE OF EXAM: 11/19/2020 COMPARISON: None HISTORY: Post gastric sleeve TECHNIQUE: A single contrast UGI study is performed. FINDINGS: Contrast passes from the distal esophagus through the gastric sleeve with no hesitancy. No extravasation of contrast is evident. Small amount of free air is under the diaphragms. Overhead radiographs were obtained which are unremarkable. Fluoroscopy time: 26 seconds. Images: 26 IMPRESSIONS: 1. Normal post gastric sleeve without obstruction or hesitancy. No extravasation.
[2020-11-19 14:01] VITALS: BMI 51.7
--- NOTE | 2020-11-19 14:03 | P.PN ---
<JoanieErinn - Last Filed: 11/19/20 13:59> Subjective Progress Note Date: 11/19/20 CHIEF COMPLAINT: Morbid obesity HISTORY OF PRESENT ILLNESS: Patient is status post laparoscopic sleeve gastrectomy. Patient reports that her pain is controlled. She denies any nausea or vomiting. Denies any flatus. She has been up and ambulating. Her upper GI results show normal post gastric sleeve without obstruction or hesita ncy. No extravasation.. Afebrile. WBC 8.97 hemoglobin 11.4 platelets 309 sodium 140 potassium 4.0 creatinine 0.6, COVID-19 not detected magnesium 2.2 PHYSICAL EXAM: VITAL SIGNS: Reviewed. GENERAL: Well-developed in no acute distress. HEENT: No sclera icterus. Extraocular movements grossly intact. Moist buccal mucosa. Head is atraumatic, normocephalic. ABDOMEN: Soft. Nondistended. Incision sites clean dry and intact NEUROLOGIC: Alert and oriented. Cranial nerves II through XII grossly intact. ASSESSMENT: 1. Morbid obesity, sleep apnea, chronic joint pain status post Laparoscopic sleeve gastrectomy PLAN: -Start bariatric clear liquid diet -Continue IV fluids -Continue pain medication as needed -Ordered abdominal binder -Encourage patient to ambulate -Encourage patient to use incentive spirometer -GI prophylaxis Protonix and DVT prophylaxis Lovenox Physician Product Technology Scientist note has been reviewed by physician. Signing provider agrees with the documented findings, assessment, and plan of care. Objective - Vital Signs Vital signs: Vital Signs Temp 98.8 F 11/19/20 13:22 Pulse 90 11/19/20 13:22 Resp 18 11/19/20 13:22 BP 143/79 11/19/20 13:22 Pulse Ox 94 L 11/19/20 13:22 Intake & Output 11/18/20 11/19/20 11/19/20 18:59 06:59 18:59 Intake Total 1200 Output Total 20 Balance 1180 Weight 141.1 kg Intake: IV 1200 Output: Estimated Blood Loss 20 Other: # Voids 0 - Labs CBC & Chem 7: 11/19/20 05:50 11/19/20 05:50 Labs: Abnormal Lab Results - Last 24 Hours (Table) 11/19/20 11/19/20 Range/Units 05:50 05:50 Hgb 11.4 L (12.0-15.0) g/dL MCH 25.1 L (27.0-32.0) pg MCHC 30.2 L (32.0-37.0) g/dL RDW 15.0 H (11.5-14.5) % Eosinophils # 0 L (0.04-0.35) X 10*3/uL BUN 6.0 L (9.0-27.0) mg/dL <Sam Powell - Last Filed: 11/19/20 16:18> Subjective As above. Patient doing well. Add Toradol for pain control. Continue clear liquids. Ambulate. Monitor liquid intake. Objective - Vital Signs Vital signs: Vital Signs Temp 98.8 F 11/19/20 13:22 Pulse 90 11/19/20 13:22 Resp 18 11/19/20 13:22 BP 143/79 11/19/20 13:22 Pulse Ox 94 L 11/19/20 13:22 Intake & Output 11/18/20 11/19/20 11/19/20 18:59 06:59 18:59 Intake Total 1200 Output Total 20 Balance 1180 Weight 141.1 kg 141.1 kg Intake: IV 1200 Output: Estimated Blood Loss 20 Other: # Voids 0 - Labs CBC & Chem 7: 11/19/20 05:50 11/19/20 05:50 Labs: Abnormal Lab Results - Last 24 Hours (Table) 11/19/20 11/19/20 Range/Units 05:50 05:50 Hgb 11.4 L (12.0-15.0) g/dL MCH 25.1 L (27.0-32.0) pg MCHC 30.2 L (32.0-37.0) g/dL RDW 15.0 H (11.5-14.5) % Eosinophils # 0 L (0.04-0.35) X 10*3/uL BUN 6.0 L (9.0-27.0) mg/dL Assessment and Plan (1) Morbid obesity with BMI of 50.0-59.9, adult Current Visit: Yes Status: Acute Code(s): E66.01 - MORBID (SEVERE) OBESITY DUE TO EXCESS CALORIES; Z68.43 - BODY MASS INDEX [BMI] 50.0-59.9, ADULT SNOMED Code(s): 750815755
[2020-11-19] MEDS: SIMETHICONE 40 MG/0.6 ML DROPS 2,000 MG/30 ML BOTTLE PO PRN (17:30)
[2020-11-19] MEDS: HYOSCYAMINE ORAL DROPS 1.875 MG/15 ML BOTTLE PO PRN (17:30)
[2020-11-19] MEDS: KETOROLAC 15 MG/ML 1 ML VIAL IVP SCH (17:31)
[2020-11-20] MEDS: 1: MVI, ADULT NO.4 WITH VIT K 10 ML, THIAMINE 100 MG, FOLIC ACID 1 MG, POTASSIUM CHLORID IV SCH ×18 (00:57→14:18)
[2020-11-20] MEDS: KETOROLAC 15 MG/ML 1 ML VIAL IVP SCH ×5 (00:57→16:51)
[2020-11-20] MEDS: HYOSCYAMINE ORAL DROPS 1.875 MG/15 ML BOTTLE PO PRN (00:58)
[2020-11-20] MEDS: SIMETHICONE 40 MG/0.6 ML DROPS 2,000 MG/30 ML BOTTLE PO PRN (01:03)
[2020-11-20] MEDS: ENOXAPARIN 40 MG/0.4 ML SYRINGE SQ SCH ×2 (05:44→16:51)
[2020-11-20] MEDS: LEVOTHYROXINE 100 MCG TAB PO SCH (05:45)
[2020-11-20] MEDS: PANTOPRAZOLE 40 MG/10 ML VIAL IV SCH (09:42)
[2020-11-20] MEDS: LACTATED RINGERS 1,000 ML IV SCH (09:43)
--- NOTE | 2020-11-20 13:17 | P.PN ---
Subjective Patient was a 40-year-old female is admitted for elective sleeve gastrectomy patient successfully underwent surgery. Patient all the is better patient will undergo upper GI endoscopy after which patient was started on diet. Medicine was consulted for management of hyperthyroidism patient takes 200 mcg of levothyroxine on weekdays and the 175 g of levothyroxine on the weekends. Patient pain is fairly well controlled. Patient was complaining of some epigastric abdominal discomfort and nausea 11/20/2020 Patient is clinically doing well at this time patient's diet is being advanced to complaining of some epigastric abdominal discomfort. Constitutional: Denied any fatigue denied any fever. Cardio vascular: denied any chest pain, palpitations Gastrointestinal denied any nausea vomiting Pulmonary: Denied any shortness of breath cough Neurologic denied any new focal deficits All inpatient medications were reviewed and appropriate changes in these medications as dictated in the interval history and assessment and plan. PHYSICAL EXAMINATION: GENERAL: The patient is alert and oriented x3, not in any acute distress. Well developed, well nourished. HEENT: Pupils are round and equally reacting to light. EOMI. No scleral icterus. No conjunctival pallor. Normocephalic, atraumatic. No pharyngeal erythema. No thyromegaly. CARDIOVASCULAR: S1 and S2 present. No murmurs, rubs, or gallops. PULMONARY: Chest is clear to auscultation, no wheezing or crackles. ABDOMEN: Soft, nontender, nondistended, normoactive bowel sounds. No palpable organomegaly. MUSCULOSKELETAL: No joint swelling or deformity. EXTREMITIES: No cyanosis, clubbing, or pedal edema. NEUROLOGICAL: Gross neurological examination did not reveal any focal deficits. SKIN: No rashes. Assessment and plan -Laparoscopic sleeve gastrectomy patient is doing well testing her BMI, recommend higher dose of Lovenox for DVT prophylaxis, which she is already on. -Hypothyroidism continue with levothyroxine -Sleep apnea patient uses CPAP machine at home DVT prophylaxis: Lovenox 40 mg subcutaneous twice a day which is an appropriate dose. Objective - Vital Signs Vital signs: Vital Signs Temp 97.6 F 11/20/20 07:59 Pulse 61 11/20/20 07:59 Resp 18 11/20/20 07:59 BP 133/69 11/20/20 07:59 Pulse Ox 96 11/20/20 07:59 Intake & Output 11/19/20 11/20/20 11/20/20 18:59 06:59 18:59 Weight 141.1 kg Other: # Voids 3 2 # Bowel Movements 0 - Labs CBC & Chem 7: 11/19/20 05:50 11/19/20 05:50 Labs: Abnormal Lab Results - Last 24 Hours (Table) 11/19/20 Range/Units 05:50 BUN 6.0 L (9.0-27.0) mg/dL
--- NOTE | 2020-11-20 15:27 | P.PN ---
<Erinn Nair - Last Filed: 11/20/20 15:25> Subjective Progress Note Date: 11/20/20 CHIEF COMPLAINT: Morbid obesity HISTORY OF PRESENT ILLNESS: Patient is status post laparoscopic sleeve gastrectomy. Patient reports that her pain is controlled. She denies any nausea or vomiting. She is having flatus. She has been up ambulating. Patient has only taken and about 18 ounces of fluids orally daily. Afebrile PHYSICAL EXAM: VITAL SIGNS: Reviewed. GENERAL: Well-developed in no acute distress. HEENT: No sclera icterus. Extraocular movements grossly intact. Moist buccal mucosa. Head is atraumatic, normocephalic. ABDOMEN: Soft. Nondistended. Incision sites clean dry and intact NEUROLOGIC: Alert and oriented. Cranial nerves II through XII grossly intact. ASSESSMENT: 1. Morbid obesity, sleep apnea, chronic joint pain status post Laparoscopic sleeve gastrectomy PLAN: -Continue bariatric clear liquid diet -Encourage patient to increase oral fluid intake -Continue IV fluids -Continue pain medication as needed -Encourage patient to ambulate -Encourage patient to use incentive spirometer -GI prophylaxis Protonix and DVT prophylaxis Lovenox Physician Slitter Creaser Slotter Helper note has been reviewed by physician. Signing provider agrees with the documented findings, assessment, and plan of care. Objective - Vital Signs Vital signs: Vital Signs Temp 97.6 F 11/20/20 13:31 Pulse 59 L 11/20/20 13:31 Resp 16 11/20/20 13:31 BP 128/70 11/20/20 13:31 Pulse Ox 96 11/20/20 13:31 Intake & Output 11/19/20 11/20/20 11/20/20 18:59 06:59 18:59 Weight 141.1 kg Other: # Voids 3 2 # Bowel Movements 0 - Labs CBC & Chem 7: 11/19/20 05:50 11/19/20 05:50 <Sam Powell - Last Filed: 11/21/20 13:54> Subjective As above. Patient's oral intake not appropriate for discharge. Continue encouraging liquid intake. Ambulate. Hopefully discharge tomorrow. Objective - Vital Signs Vital signs: Vital Signs Temp 97.5 F L 11/21/20 07:11 Pulse 58 L 11/21/20 07:11 Resp 18 11/21/20 07:11 BP 125/54 11/21/20 07:11 Pulse Ox 96 11/21/20 07:11 Intake & Output 11/20/20 11/21/20 11/21/20 18:59 06:59 18:59 Intake Total 1000 1021.2 Balance 1000 1021.2 Intake: Intake, IV Titration 1000 1021.2 Amount 0.9% NaCl with KCl 20 Meq 1000 /l 1,000 ml @ 100 mls/hr IV .BY DURATION MUNIR Rx#: [id number] Mvi, Adult No.4 with Vit 1021.2 K 10 ml Thiamine 100 mg Folic Acid 1 mg Potassium Chloride 20 meq In Sodium Chloride 0.9% 1, 000 ml @ 100 mls/hr IV . BY DURATION MUNIR Rx#: [id number] Other: # Voids 2 1 - Labs CBC & Chem 7: 11/19/20 05:50 11/19/20 05:50 Assessment and Plan (1) Morbid obesity with BMI of 50.0-59.9, adult Current Visit: Yes Status: Acute Code(s): E66.01 - MORBID (SEVERE) OBESITY DUE TO EXCESS CALORIES; Z68.43 - BODY MASS INDEX [BMI] 50.0-59.9, ADULT SNOMED Code(s): 637552993
[2020-11-21] MEDS: 1: MVI, ADULT NO.4 WITH VIT K 10 ML, THIAMINE 100 MG, FOLIC ACID 1 MG, POTASSIUM CHLORID IV SCH ×12 (00:30→11:10)
[2020-11-21] MEDS: LEVOTHYROXINE 100 MCG TAB PO SCH (05:44)
[2020-11-21] MEDS: KETOROLAC 15 MG/ML 1 ML VIAL IVP SCH ×3 (05:44→11:10)
[2020-11-21] MEDS: ENOXAPARIN 40 MG/0.4 ML SYRINGE SQ SCH (05:44)
[2020-11-21] MEDS: LACTATED RINGERS 1,000 ML IV SCH (07:06)
[2020-11-21] MEDS: PANTOPRAZOLE 40 MG/10 ML VIAL IV SCH (08:54)
--- NOTE | 2020-11-21 13:17 | P.DS ---
<Erinn Nair - Last Filed: 11/21/20 13:15> Providers Expected date of discharge: 11/21/20 Hospital Course: Discharge diagnosis 1. Morbid obesity, sleep apnea, chronic joint pain status post Laparoscopic sleeve gastrectomy Hospital course This is a 40-year-old female with a known history of morbid obesity, obstructive sleep apnea and chronic joint pain. She is status post laparoscopic sleeve gastrectomy. Patient tolerated surgery well. Her upper GI had shown no evidence of leak or obstruction. Her pain is controlled. She is tolerating bariatric clear liquid diet. She is having flatus. She is up and ambulating. She is afebrile. She is stable for discharge. Please refer to chart for any further details. Physician Patient Transition Specialist note has been reviewed by physician. Signing provider agrees with the documented findings, assessment, and plan of care. Patient Condition at Discharge: Stable Plan - Discharge Summary Discharge Rx Participant: No New Discharge Prescriptions: New Omeprazole [PriLOSEC] 40 mg PO DAILY #30 cap Ondansetron Odt [Zofran Odt] 4 mg PO Q8HR PRN #9 tab PRN Reason: Nausea bisacodyL [Dulcolax] 5 mg PO DAILY PRN #10 tab PRN Reason: Constipation Simethicone 40 mg/0.6 ml Drops [Mylicon Drops] 40 mg PO PCHS PRN #30 ml PRN Reason: Gas HYDROcodone/APAP 5-325MG [[place] 5-325] 1 tab PO Q6HR PRN 2 Days #5 tab PRN Reason: Pain Continue Levothyroxine Sodium [Synthroid] 200 mcg PO MOTUWETHFR Levothyroxine Sodium [Synthroid] 175 mcg PO SUSA No Action Ferrous Sulfate, Dried [Iron] 64 mg PO DAILY Cholecalciferol [Vitamin D3 (25 Mcg = 1000 Iu)] 25 mcg PO DAILY Discharge Medication List Ferrous Sulfate, Dried [Iron] 64 mg PO DAILY 11/07/19 [History] Levothyroxine Sodium [Synthroid] 200 mcg PO MOTUWETHFR 11/07/19 [History] Cholecalciferol [Vitamin D3 (25 Mcg = 1000 Iu)] 25 mcg PO DAILY 07/17/20 [History] Levothyroxine Sodium [Synthroid] 175 mcg PO SUSA 11/14/20 [History] HYDROcodone/APAP 5-325MG [[place] 5-325] 1 tab PO Q6HR PRN 2 Days #5 tab 11/21/20 [Rx] Omeprazole [PriLOSEC] 40 mg PO DAILY #30 cap 11/21/20 [Rx] Ondansetron Odt [Zofran Odt] 4 mg PO Q8HR PRN #9 tab 11/21/20 [Rx] Simethicone 40 mg/0.6 ml Drops [Mylicon Drops] 40 mg PO PCHS PRN #30 ml 11/21/20 [Rx] bisacodyL [Dulcolax] 5 mg PO DAILY PRN #10 tab 11/21/20 [Rx] Follow up Appointment(s)/Referral(s): Nieves Renteria FNPBC [REFERRING] [facility] [place] - 11/22/20 10:00 am (Please arrive to the clinic on Wednesday11/22/20 at 1000 AM for a nurse visit. ) Patient Instructions/Handouts: *Surgery [facility] - Scopalamine Patch Instructions Activity/Diet/Wound Care/Special Instructions: No driving while taking [place] No lifting over 10 pounds You may shower. No soaking or tub baths for 2 weeks Very light activity until you are reevaluated at your follow up appointment with your surgeon No straws or carbonated beverages Hold on taking vitamin D and iron pills for one week Discharge Disposition: HOME SELF-CARE <Sam Powell - Last Filed: 11/21/20 13:53> Providers Date of admission: 11/18/20 12:13 Attending physician: Sam Powell Consults: 11/18/20 15:24 Consult Physician Routine Consulting Provider: Renetta Parish Consult Reason/Comments: Medical management Do you want consulting provider notified?: Yes Primary care physician: Eliz Souza - Discharge Diagnosis(es) (1) Morbid obesity with BMI of 50.0-59.9, adult Current Visit: Yes Status: Acute Hospital Course: As above. Patient doing well today. Tolerating 27 ounces of liquids by a pproximately 1 PM. May discharge. Follow-up one week.
[2020-11-21 14:21] VITALS: BP 168/71; PULSE 55; RESP 17; TEMP 98.3
--- NOTE | 2020-11-21 14:59 | P.PN ---
Subjective Progress Note Date: 11/21/20 Patient was a 40-year-old female is admitted for elective sleeve gastrectomy patient successfully underwent surgery. Patient all the is better patient will undergo upper GI endoscopy after which patient was started on diet. Medicine was consulted for management of hyperthyroidism patient takes 200 mcg of levothyroxine on weekdays and the 175 g of levothyroxine on the weekends. Patient pain is fairly well controlled. Patient was complaining of some epigastric abdominal discomfort and nausea 11/20/2020 Patient is clinically doing well at this time patient's diet is being advanced to complaining of some epigastric abdominal discomfort. 11/21/2020 Patient is seen in follow-up this morning with no acute overnight issues. Patient is tolerating more of clear liquids with increased intake and continues to have gas although no reports of bowel movements as of yet. Patient denies any nausea or vomiting. No shortness of breath, chest pain, or palpitations. Patient anticipates being discharged today by admitting surgery services. Constitutional: Denied any fatigue denied any fever. Cardio vascular: denied any chest pain, palpitations Gastrointestinal denied any nausea vomiting, reports the passing gas with no bowel movement Pulmonary: Denied any shortness of breath cough Neurologic denied any new focal deficits All inpatient medications were reviewed and appropriate changes in these medications as dictated in the interval history and assessment and plan. PHYSICAL EXAMINATION: GENERAL: The patient is alert and oriented x3, not in any acute distress. Well developed, well nourished. HEENT: Pupils are round and equally reacting to light. EOMI. No scleral icterus. No conjunctival pallor. Normocephalic, atraumatic. No pharyngeal erythema. No thyromegaly. CARDIOVASCULAR: S1 and S2 present. No murmurs, rubs, or gallops. PULMONARY: Chest is clear to auscultation, no wheezing or crackles. ABDOMEN: Soft, nontender, nondistended, normoactive bowel sounds. No palpable organomegaly. MUSCULOSKELETAL: No joint swelling or deformity. EXTREMITIES: No cyanosis, clubbing, or pedal edema. NEUROLOGICAL: Gross neurological examination did not reveal any focal deficits. SKIN: No rashes. Assessment and plan: -Laparoscopic sleeve gastrectomy -Hypothyroidism continue with levothyroxine -Sleep apnea patient uses CPAP machine at home -DVT prophylaxis: Lovenox 40 mg subcutaneous twice a day which is an appropriate dose. Plan: Instructed the patient to continue to increase activity as tolerated and continue using incentive spirometer and CPAP at night. Patient is passing gas with no reports of bowel movement as of yet but has been able to increase her intake and tolerating clear liquids and recommend to continue with strict bariatric diet and guidelines per surgery services. Patient anticipates being discharged today and will continue to follow during hospitalization. Thank you for this consultation. Objective - Vital Signs Vital signs: Vital Signs Temp 97.5 F L 11/21/20 07:11 Pulse 58 L 11/21/20 07:11 Resp 18 11/21/20 07:11 BP 125/54 11/21/20 07:11 Pulse Ox 96 11/21/20 07:11 Intake & Output 11/20/20 11/21/20 11/21/20 18:59 06:59 18:59 Intake Total 1000 Balance 1000 Intake: Intake, IV Titration 1000 Amount 0.9% NaCl with KCl 20 Meq 1000 /l 1,000 ml @ 100 mls/hr IV .BY DURATION MUNIR Rx#: [id number] Other: # Voids 2 1 - Labs CBC & Chem 7: 11/19/20 05:50 11/19/20 05:50
[2020-11-23] MEDS ORDERED: LEVOTHYROXINE 100 MCG TAB PO SCH (06:30)
[2020-11-23] MEDS ORDERED: LEVOTHYROXINE 75 MCG TAB PO SCH (06:30)
== END 2020-11-21 16:50 | disposition home or self-care (01) | DRG 621 ==
LOC: 2ORMAIN 12:13 → 4SSUR 16:06
PROVIDERS: ADMIT Surgery; ATTEND Surgery
PROC: 0DB64Z3 Excision of Stomach, Percutaneous Endoscopic Approach, Vertical (ICD-10-PCS; principal; 2020-11-18 13:40)
DX: E66.01 Morbid (severe) obesity due to excess calories (principal); E89.0 Postprocedural hypothyroidism; G47.30 Sleep apnea, unspecified; G89.29 Other chronic pain; Z20.822 Contact with and (suspected) exposure to COVID-19; G47.33 Obstructive sleep apnea (adult) (pediatric); K29.70 Gastritis, unspecified, without bleeding; M25.50 Pain in unspecified joint; Z68.43 Body mass index [BMI] 50.0-59.9, adult; Z79.890 Hormone replacement therapy; Z82.49 Family history of ischemic heart disease and other diseases of the circulatory system; Z83.3 Family history of diabetes mellitus; Z85.850 Personal history of malignant neoplasm of thyroid
CPT/HCPCS: 74240; 80051; 81025; 82310; 82565; 83735; 84100; 84520; 85025; 87635; 88307; 94660; 94760; 94762

== ENCOUNTER → 2020-11-22 | Outpatient (CLI) | payer OTHER ==
[2020-11-22 11:57] VITALS: BP 129/76; PULSE 62; RESP 18; TEMP 98.9; BMI 56.2
== END | disposition home or self-care (01) ==
LOC: BARWHC3 10:10
PROVIDERS: ATTEND Surgery
DX: E66.01 Morbid (severe) obesity due to excess calories (principal); Z68.43 Body mass index [BMI] 50.0-59.9, adult; Z98.84 Bariatric surgery status
CPT/HCPCS: 99211

== ENCOUNTER → 2020-11-26 | Outpatient (CLI) | payer OTHER ==
[2020-11-26 10:38] VITALS: BP 137/81; PULSE 80; TEMP 98.1; BMI 53.4
--- NOTE | 2020-11-26 10:53 | P.BASOAP ---
Subjective Progress Note Date: 11/26/20 Principal diagnosis: Morbid obesity Patient returns 1 week post sleeve gastrectomy. Doing well at this time. Taking in about 40-50 ounces of liquids daily. Some dysphagia to Jell-O. Mild discomfort. Pain is improving. Heart rate is 80. No fevers. Objective - Vital Signs Vital signs: Vital Signs Temp 98.1 F 11/26/20 10:34 Pulse 80 11/26/20 10:34 Resp BP 137/81 11/26/20 10:34 Pulse Ox Intake & Output 11/25/20 11/26/20 11/26/20 18:59 06:59 18:59 Weight 145.603 kg - Exam Abdomen: Soft, nontender, nondistended, incisions clean and dry Assessment/Plan (1) Morbid obesity with BMI of 50.0-59.9, adult Narrative/Plan: Patient doing well at this time. Continue exercise and dietary regimen. We'll see dietitian today. Recheck 2 weeks. Plan: Date: 11/26/20 Initial Weight: Initial BMI: Current Weight: 145.603 kg Current BMI: 53.4 Type of Surgery: Total Volume in Band: Previous Volume: Volume Removed: Volume Added: Band Size:
== END | disposition home or self-care (01) ==
LOC: BARWHC3 10:22
PROVIDERS: ATTEND Surgery
DX: E66.01 Morbid (severe) obesity due to excess calories (principal); Z71.3 Dietary counseling and surveillance
CPT/HCPCS: 97803; G0463; 99211

== ENCOUNTER → 2020-12-10 | Outpatient (CLI) | payer OTHER ==
[2020-12-10 13:47] VITALS: BP 121/77; PULSE 63; RESP 16; TEMP 97.8; BMI 52.2
--- NOTE | 2020-12-10 14:05 | P.BASOAP ---
Subjective Progress Note Date: 12/10/20 Principal diagnosis: Morbid obesity Patient returns for 1 month recheck. Doing well. Denies pain. No nausea or vomiting. No heartburn. Remains on antiacids. Heart rate is normal at 63. She is drinking better. Approximate 60 ounces of liquids daily. Better protein intake. She has lost 7 pounds since her last visit. No pain. She is due for one month labs. Objective - Vital Signs Vital signs: Vital Signs Temp 97.8 F 12/10/20 13:44 Pulse 63 12/10/20 13:44 Resp 16 12/10/20 13:44 BP 121/77 12/10/20 13:44 Pulse Ox Intake & Output 12/09/20 12/10/20 12/10/20 18:59 06:59 18:59 Weight 142.428 kg - Exam Abdomen: Soft, nontender, nondistended Assessment/Plan (1) Morbid obesity with BMI of 50.0-59.9, adult Narrative/Plan: Patient doing better at this time. Continue dietary and exercise regimen. May return to work on the . Check one month labs. We'll send refill for P rilosec. Return visit one month. Patient will be seen by dietitian today. Plan: Date: 12/10/20 Initial Weight: 161.706 kg Initial BMI: 59.3 Current Weight: 142.428 kg Current BMI: 52.2 Type of Surgery: Total Volume in Band: Previous Volume: Volume Removed: Volume Added: Band Size:
[2020-12-10 15:13] LABS: HCT 34.3 % (34.0-46.0); HGB 11.8 gm/dL (11.4-16.0); MCH 27.3 pg (25.0-35.0); MCHC 34.5 g/dL (31.0-37.0); MCV 79.2 fL (80.0-100.0); Mean Platelet Volume 8.6; Platelet Count 239 k/uL (150-450); RBC 4.33 m/uL (3.80-5.40); RDW 14.7 % (11.5-15.5); WBC 4.8 k/uL (3.8-10.6)
[2020-12-11 09:05] LABS: African American GFR (CKD) 122.8 (60.0-200.0); Albumin 4.3 g/dL (3.8-4.9); Albumin/Globulin Ratio 1.51 (1.60-3.17); Anion Gap 17.8 mmol/L (4.00-12.00); BUN/Creat Ratio 8.55 Ratio (12.00-20.00); Calcium 9.2 mg/dL (8.7-10.3); Carbon Dioxide 19.5 mmol/L (21.6-31.8); Folate, Serum 11.6 ng/mL (4.40-31.00); Globulin 2.9 g/dL (1.6-3.3); Potassium 4.1 mmol/L (3.5-5.5); Total Bilirubin 0.4 mg/dL (0.30-1.20); Total Protein 7.2 g/dL (6.2-8.2)
== END | disposition home or self-care (01) ==
LOC: BARWHC3 13:34
PROVIDERS: ATTEND Surgery
DX: K90.89 Other intestinal malabsorption (principal); E55.9 Vitamin D deficiency, unspecified
CPT/HCPCS: 84425; 80053; 82607; 82746; 83540; 85027; 82306; 97803; 36415; G0463; 99211

== ENCOUNTER → 2021-01-21 | Outpatient (CLI) | payer OTHER ==
[2021-01-21 15:29] VITALS: BP 125/75; PULSE 68; RESP 18; TEMP 98.1; BMI 48.7
--- NOTE | 2021-01-21 15:43 | P.BASOAP ---
Subjective Progress Note Date: 01/21/21 Principal diagnosis: Morbid obesity Patient returns for reevaluation. She was last seen 12/10. She had her 1 month labs checked. Her iron was once again low at 34 although improved from previous. Her vitamin B1 was also low but had decreased and is now at 30. Since then she increased her iron supplementation and started taking B1. She is doing well with her protein and liquid intake. She has lost 21 pounds since last visit. Some constipation issues. She is taking Dulcolax mainly but does have MiraLAX at home. No pain. No heartburn. Objective - Vital Signs Vital signs: Vital Signs Temp 98.1 F 01/21/21 15:27 Pulse 68 01/21/21 15:27 Resp 18 01/21/21 15:27 BP 125/75 01/21/21 15:27 Pulse Ox Intake & Output 01/20/21 01/21/21 01/21/21 18:59 06:59 18:59 Weight 132.903 kg - Exam Abdomen: Soft, nontender, nondistended Assessment/Plan (1) Morbid obesity with BMI of 50.0-59.9, adult Narrative/Plan: Patient is doing well at this time. Continue iron and B1 supplementation. Continue antiacid therapy. Patient will return in 4-6 weeks for reevaluation. We'll check 3 months labs at that time. Plan: Date: 01/21/21 Initial Weight: 161.706 kg Initial BMI: 59.3 Current Weight: 132.903 kg Current BMI: 48.7 Type of Surgery: Total Volume in Band: Previous Volume: Volume Removed: Volume Added: Band Size:
== END | disposition home or self-care (01) ==
LOC: BARWHC3 14:28
PROVIDERS: ATTEND Surgery
DX: E66.01 Morbid (severe) obesity due to excess calories (principal); Z68.43 Body mass index [BMI] 50.0-59.9, adult
CPT/HCPCS: 99211

== ENCOUNTER → 2021-03-04 | Outpatient (CLI) | payer OTHER ==
[2021-03-04 12:32] VITALS: BP 138/71; PULSE 51; TEMP 98.1; BMI 46.0
--- NOTE | 2021-03-04 13:26 | P.BASOAP ---
Subjective Progress Note Date: 03/04/21 Principal diagnosis: Morbid obesity Patient returns for reevaluation. Last seen 01/21. She has lost 16 pounds since her last visit. Her constipation is improved. Taking MiraLAX every other day. No heartburn. He stopped taking her antiacids. She is due for labs. Objective - Vital Signs Vital signs: Vital Signs Temp 98.1 F 03/04/21 12:29 Pulse 51 L 03/04/21 12:29 Resp BP 138/71 03/04/21 12:29 Pulse Ox Intake & Output 03/03/21 03/04/21 03/04/21 18:59 06:59 18:59 Weight 125.645 kg - Exam Abdomen: Soft, nontender, nondistended Assessment/Plan (1) Morbid obesity with BMI of 50.0-59.9, adult Narrative/Plan: Patient doing well at this time. Check three-month labs. Continue observation off of antiacids for now. Continue MiraLAX for constipation. Increase activity levels. Plan: Date: 03/04/21 Initial Weight: 161.706 kg Initial BMI: 59.3 Current Weight: 125.645 kg Current BMI: 46.0 Type of Surgery: Total Volume in Band: Previous Volume: Volume Removed: Volume Added: Band Size:
[2021-03-04 13:57] LABS: HCT 38.9 % (34.0-46.0); HGB 12.3 gm/dL (11.4-16.0); Hypochromasia Slight; MCH 26.7 pg (25.0-35.0); MCHC 31.6 g/dL (31.0-37.0); MCV 84.3 fL (80.0-100.0); Mean Platelet Volume 7.8; Platelet Count 263 k/uL (150-450); RBC 4.62 m/uL (3.80-5.40); WBC 6.6 k/uL (3.8-10.6)
[2021-03-05 00:56] LABS: African American GFR (CKD) 127.8 (60.0-200.0); Albumin 4.5 g/dL (3.8-4.9); Albumin/Globulin Ratio 1.63 (1.60-3.17); Anion Gap 15.9 mmol/L (10.00-18.00); BUN/Creat Ratio 15.09 Ratio (12.00-20.00); Blood Urea Nitrogen 9.6 mg/dL (9.0-27.0); Calcium 9.4 mg/dL (8.7-10.3); Carbon Dioxide 24.6 mmol/L (20.0-27.5); Globulin 2.7 g/dL (1.6-3.3); Non-African American GFR(CKD) 110.2 (60.0-200.0); Potassium 3.9 mmol/L (3.5-5.5); Total Bilirubin 0.4 mg/dL (0.30-1.20); Total Protein 7.2 g/dL (6.2-8.2)
[2021-03-05 00:57] LABS: Folate, Serum 7.6 ng/mL (4.40-31.00)
== END | disposition home or self-care (01) ==
LOC: BARWHC3 11:58
PROVIDERS: ATTEND Surgery
DX: E66.01 Morbid (severe) obesity due to excess calories (principal); K90.89 Other intestinal malabsorption; E55.9 Vitamin D deficiency, unspecified; Z68.43 Body mass index [BMI] 50.0-59.9, adult; Z71.3 Dietary counseling and surveillance
CPT/HCPCS: 84425; 80053; 82607; 82746; 83540; 85027; 82306; 97803; 36415; G0463; 99211

== ENCOUNTER → 2021-04-29 | Outpatient (CLI) | payer OTHER ==
[2021-04-29 13:42] VITALS: BP 134/78; PULSE 77; TEMP 98; BMI 45.1
--- NOTE | 2021-04-29 14:21 | P.BASOAP ---
Subjective Progress Note Date: 04/29/21 Principal diagnosis: Morbid obesity Patient returns the bariatric clinic. Last seen 6-8 weeks ago. Labs checked at that time looked great. She has lost 6 pounds since then. No nausea or vomiting. No heartburn. She is no longer taking antiacids. She has been very busy with work and not able to exercise much. Objective - Vital Signs Vital signs: Vital Signs Temp 98 F 04/29/21 13:31 Pulse 77 04/29/21 13:31 Resp BP 134/78 04/29/21 13:31 Pulse Ox Intake & Output 04/28/21 04/29/21 04/29/21 18:59 06:59 18:59 Weight 122.924 kg - Exam Abdomen: Soft, nontender, nondistended Assessment/Plan (1) Morbid obesity with BMI of 50.0-59.9, adult Narrative/Plan: Patient continues to do fairly well. Weight loss is slowed down somewhat. Discussed options of adding different diets to her postop regimen. Also discussed increasing activity. Follow-up 6-8 weeks. We'll check follow-up lab work at that time. Plan: Date: 04/29/21 Initial Weight: 161.706 kg Initial BMI: 59.3 Current Weight: 122.924 kg Current BMI: 45.1 Type of Surgery: Total Volume in Band: Previous Volume: Volume Removed: Volume Added: Band Size:
== END ==
LOC: BARWHC3 13:11
PROVIDERS: ATTEND Surgery
DX: E66.01 Morbid (severe) obesity due to excess calories (principal); Z68.42 Body mass index [BMI] 45.0-49.9, adult
CPT/HCPCS: 99211

== ENCOUNTER → 2021-06-10 | Outpatient (CLI) | payer OTHER ==
[2021-06-10 14:12] VITALS: BP 115/55; PULSE 57; RESP 16; BMI 44.1
--- NOTE | 2021-06-10 14:30 | P.BASOAP ---
Subjective Progress Note Date: 06/10/21 Principal diagnosis: Morbid obesity Patient returns for recheck. She was last seen on 04/29. Underwent sleeve gastrectomy in October. She has lost another 6 pounds. She is due for lab work. Still working quite a bit. She put in over 130 hours over a two-week stretch recently. Not exercising much because of that. No antacid use. Objective - Vital Signs Vital signs: Vital Signs Temp Pulse 57 L 06/10/21 14:10 Resp 16 06/10/21 14:10 BP 115/55 06/10/21 14:10 Pulse Ox Intake & Output 06/09/21 06/10/21 06/10/21 18:59 06:59 18:59 Weight 120.519 kg - Exam Abdomen: Soft, nontender, nondistended Assessment/Plan (1) Morbid obesity with BMI of 50.0-59.9, adult Narrative/Plan: Patient doing well at this time. Continue increasing exercise volume. Continue bariatric diet. Will check 6 month labs at this time. Follow-up 6 weeks. Plan: Date: 06/10/21 Initial Weight: 161.706 kg Initial BMI: 59.3 Current Weight: 120.519 kg Current BMI: 44.1 Type of Surgery: Total Volume in Band: Previous Volume: Volume Removed: Volume Added: Band Size:
[2021-06-10 23:08] LABS: Basophils # (A) 0.03 X 10*3/uL (0.00-0.10); Basophils % (A) 0.6 %; Eosinophils # (A) 0.02 X 10*3/uL (0.04-0.35); Eosinophils % (A) 0.4 %; HCT 35.5 % (37.2-46.3); HGB 10.9 g/dL (12.0-15.0); Immature Grans, Automated 0.2 %; Lymphocytes # (A) 1.37 X 10*3/uL (0.90-5.00); Lymphocytes % (A) 27.8 %; MCH 25.7 pg (27.0-32.0); MCHC 30.7 g/dL (32.0-37.0); MCV 83.7 fL (80.0-97.0); Mean Platelet Volume 10.4 fL (9.5-12.2); Monocytes # (A) 0.32 X 10*3/uL (0.20-1.00); Monocytes % (A) 6.5 %; NRBC Per 100 WBC 0 /100 WBCS (0.0-0.0); Neutrophils # (A) 3.17 X 10*3/uL (1.80-7.70); Neutrophils % (A) 64.5 %; Platelet Count 258 X 10*3/uL (140-440); RBC 4.24 X 10*6/uL (4.10-5.20); RDW 14.2 % (11.5-14.5); WBC 4.92 X 10*3/uL (4.50-10.00)
[2021-06-11 00:13] LABS: African American GFR (CKD) 126.2 (60.0-200.0); Albumin 4.1 g/dL (3.8-4.9); Albumin/Globulin Ratio 1.71 (1.60-3.17); Anion Gap 11.7 mmol/L (10.00-18.00); BUN/Creat Ratio 12.21 Ratio (12.00-20.00); Blood Urea Nitrogen 7.9 mg/dL (9.0-27.0); Calcium 9.3 mg/dL (8.7-10.3); Carbon Dioxide 25.5 mmol/L (20.0-27.5); Globulin 2.4 g/dL (1.6-3.3); Non-African American GFR(CKD) 108.9 (60.0-200.0); Total Bilirubin 0.3 mg/dL (0.30-1.20); Total Protein 6.4 g/dL (6.2-8.2)
== END ==
LOC: BARWHC3 13:41
PROVIDERS: ATTEND Surgery
DX: E66.01 Morbid (severe) obesity due to excess calories (principal); Z68.41 Body mass index [BMI] 40.0-44.9, adult
CPT/HCPCS: 84425; 80053; 82607; 82746; 83540; 85025; 82306; G0463; 99211

== ENCOUNTER → 2021-06-10 | Outpatient (CLI) | payer OTHER | END | disposition home or self-care (01) | LOC: LABWHC1 14:49 | PROVIDERS: ATTEND Nurse Practitioner Family | DX: K59.00 Constipation, unspecified (principal); E89.0 Postprocedural hypothyroidism; E55.9 Vitamin D deficiency, unspecified; E66.01 Morbid (severe) obesity due to excess calories | CPT/HCPCS: 36415; 83036; 84443 ==

== ENCOUNTER → 2021-07-22 | Outpatient (CLI) | payer OTHER ==
[2021-07-22 14:25] VITALS: BP 136/83; PULSE 73; RESP 12; TEMP 98.6; BMI 43.0
--- NOTE | 2021-07-22 14:44 | P.BASOAP ---
Subjective Progress Note Date: 07/22/21 Principal diagnosis: Morbid obesity Patient returns for recheck. Last seen on 06/10. At her 6 month labs drawn at that time. Her iron was low at 33. Her iron preoperatively was 32. She did recently start her oral iron supplementation back up in addition to her multivitamin. She is working for 12 hour shifts at this time which is better. She plans to be more active. Her weight is down 7 pounds since her last visit. No vomiting, no heartburn. She is not taking antiacids. Objective - Vital Signs Vital signs: Vital Signs Temp 98.6 F 07/22/21 13:59 Pulse 73 07/22/21 13:59 Resp 12 07/22/21 13:59 BP 136/83 07/22/21 13:59 Pulse Ox FiO2 Intake & Output 07/21/21 07/22/21 07/22/21 18:59 06:59 18:59 Weight 117.39 kg - Exam Abdomen: Soft, nontender, nondistended Assessment/Plan (1) Morbid obesity with BMI of 50.0-59.9, adult Narrative/Plan: Patient doing well at this time. Continue increasing exercise level. Recheck office visit 6 weeks. Plan: Date: 07/22/21 Initial Weight: 161.706 kg Initial BMI: 59.3 Current Weight: 117.39 kg Current BMI: 43.0 Type of Surgery: Total Volume in Band: Previous Volume: Volume Removed: Volume Added: Band Size:
== END | disposition home or self-care (01) ==
LOC: BARWHC3 13:59
PROVIDERS: ATTEND Surgery
DX: E66.01 Morbid (severe) obesity due to excess calories (principal); Z68.43 Body mass index [BMI] 50.0-59.9, adult
CPT/HCPCS: 99211

== ENCOUNTER → 2021-09-09 | Outpatient (CLI) | payer OTHER ==
[2021-09-09 14:11] VITALS: BP 125/82; PULSE 80; TEMP 98; BMI 43.4
--- NOTE | 2021-09-09 14:13 | P.BASOAP ---
Subjective Progress Note Date: 09/09/21 Principal diagnosis: Morbid obesity Patient returns for recheck. She was last seen in June. She has gained 2 pounds since then. Patient says her work shift has changed again which makes it hard for her to stick to a dietary or exercise regimen. Remains on iron. Some constipation at times. Takes MiraLAX when necessary. Thinks she may be retaining water. Objective - Vital Signs Vital signs: Vital Signs Temp 98 F 09/09/21 14:09 Pulse 80 09/09/21 14:09 Resp BP 125/82 09/09/21 14:09 Pulse Ox FiO2 Intake & Output 09/08/21 09/09/21 09/09/21 18:59 06:59 18:59 Weight 118.388 kg - Exam Abdomen: Soft, nontender, nondistended Assessment/Plan (1) Morbid obesity with BMI of 50.0-59.9, adult Narrative/Plan: Patient overall doing fairly well. Continue trying to set aside time for herself to focus on her exercise and dietary regime. Continue iron supplementation. Patient is interested in plastic surgery evaluation. Discussed that ideally she sees somebody from plastics in the next several months. Plan repeat clinical exam 2 months. We'll check annual labs at that time. Plan: Date: Initial Weight: 161.706 kg Initial BMI: Current Weight: Current BMI: Type of Surgery: Total Volume in Band: Previous Volume: Volume Removed: Volume Added: Band Size:
== END | disposition home or self-care (01) ==
LOC: BARWHC3 13:45
PROVIDERS: ATTEND Surgery
DX: E66.01 Morbid (severe) obesity due to excess calories (principal); Z68.43 Body mass index [BMI] 50.0-59.9, adult
CPT/HCPCS: 99211

== ENCOUNTER → 2021-09-24 | Outpatient (CLI) | payer OTHER ==
--- NOTE | 2021-09-25 14:21 | MM ---
Reason for Exam: Screening (asymptomatic). Last mammogram was performed 1 year(s) and 3 month(s) ago. Patient History: Menarche at age 11. First Full-Term at age 22. Hormonal Contraceptives for 1 year from age 17 until age 18. Maternal grandmother had breast cancer. Last menstrual period: 09/06/2021 Risk Values: Netta 5 year model risk: 0.6%. NCI Lifetime model risk: 8.8%. Prior Study Comparison: 06/13/2020 Bilateral Screening Mammogram, [facility]. Tissue Density: There are scattered fibroglandular densities. Findings: Analyzed By CAD. There is a stable nodular density within the lower inner aspect right breast. No suspicious groups of microcalcifications, spiculated or lobular masses, architectural distortion or other secondary signs of malignancy are mammographically apparent. Overall Assessment: Benign, BI-RAD 2 Management: Screening Mammogram of both breasts in 1 year. A negative mammogram report should not preclude additional follow up of suspicious palpable abnormalities. Patient should continue monthly self breast exam. A clinical breast exam by your physician is recommended on an annual basis and results should be correlated with mammographic findings. Electronically signed and approved by: Nazario Medellin D.O. Radiologis
== END | disposition home or self-care (01) ==
LOC: RADMAMWWP 13:56
PROVIDERS: ATTEND Family Medicine
DX: Z12.31 Encounter for screening mammogram for malignant neoplasm of breast (principal)
CPT/HCPCS: 77067

== ENCOUNTER → 2021-09-26 | Outpatient (CLI) | payer OTHER ==
--- NOTE | 2021-09-26 16:30 | US ---
EXAMINATION TYPE: US venous doppler duplex LE BI DATE OF EXAM: 09/26/2021 12:58 PM COMPARISON: 01/29/2015 CLINICAL HISTORY: I83.813 R25.2 R60.0. No hx of DVT. Patient does not take blood thinners. Edema. SIDE PERFORMED: Bilateral TECHNIQUE: The lower extremity deep venous system is examined utilizing real time linear array sonog kt with graded compression, doppler sonography and color-flow sonography. VESSELS IMAGED: Common Femoral Vein Deep Femoral Vein Greater Saphenous Vein * Femoral Vein Popliteal Vein Small Saphenous Vein * Proximal Calf Veins (* superficial vessels) Right Leg: No evidence of DVT in veins imaged. Left Leg: No evidence of DVT in veins imaged. IMPRESSION: 1. Bilateral lower extremity ultrasound negative for deep venous thrombosis.
== END | disposition home or self-care (01) ==
LOC: RADUSWWP 12:26
PROVIDERS: ATTEND Family Medicine
DX: I83.813 Varicose veins of bilateral lower extremities with pain (principal); R25.2 Cramp and spasm; R60.0 Localized edema
CPT/HCPCS: 93922; 93970

== ENCOUNTER → 2021-10-31 | Outpatient (CLI) | payer OTHER ==
[2021-10-31 19:33] LABS: Chol/HDL Ratio 3.64 Ratio; LDL Cholesterol,Calculated 102.2 mg/dL (0.0-131.0); VLDL Calculation 18.18 mg/dL (5.00-40.00)
== END | disposition home or self-care (01) ==
LOC: LABWHC1 11:06
PROVIDERS: ATTEND Nurse Practitioner Family
DX: E78.2 Mixed hyperlipidemia (principal); R25.2 Cramp and spasm; R60.0 Localized edema
CPT/HCPCS: 36415; 80061

== ENCOUNTER → 2022-01-08 | Outpatient (CLI) | payer OTHER ==
[2022-01-08 13:10] VITALS: BP 115/77; PULSE 62; RESP 16; TEMP 98; BMI 43.9
--- NOTE | 2022-01-08 13:29 | P.BASOAP ---
Subjective Progress Note Date: 01/08/22 Principal diagnosis: Morbid obesity 41-year-old female returns for recheck. Last seen in September. She has gained 3 pounds. She has not been as active as previously. She did have her once her labs drawn which looked good other than a mildly low iron. Her iron levels actually improved from previous. Patient is not taking any antiacids. Minimal reflux symptoms. Objective - Vital Signs Vital signs: Vital Signs Temp 98 F 01/08/22 13:08 Pulse 62 01/08/22 13:08 Resp 16 01/08/22 13:08 BP 115/77 01/08/22 13:08 Pulse Ox FiO2 Intake & Output 01/07/22 01/08/22 01/08/22 18:59 06:59 18:59 Weight 119.748 kg - Exam Abdomen: Soft, nontender, nondistended Assessment/Plan (1) Morbid obesity with BMI of 50.0-59.9, adult Narrative/Plan: Patient doing well at this time. Continue dietary and exercise regimen. Follow-up 3 months. Plan: Date: 01/08/22 Initial Weight: 161.706 kg Initial BMI: 59.3 Current Weight: 119.748 kg Current BMI: 43.9 Type of Surgery: Total Volume in Band: Previous Volume: Volume Removed: Volume Added: Band Size:
== END ==
LOC: BARWHC3 12:57
PROVIDERS: ATTEND Surgery
DX: E66.01 Morbid (severe) obesity due to excess calories (principal); Z68.41 Body mass index [BMI] 40.0-44.9, adult; Z91.030 Bee allergy status
CPT/HCPCS: 99211

== ENCOUNTER → 2022-02-13 | Outpatient (CLI) | payer OTHER ==
[2022-02-13 15:28] LABS: Chol/HDL Ratio 3.37 Ratio; LDL Cholesterol,Calculated 113.6 mg/dL (0.0-131.0)
== END | disposition home or self-care (01) ==
LOC: LABWHC1 09:37
PROVIDERS: ATTEND Nurse Practitioner Family
DX: Z13.220 Encounter for screening for lipoid disorders (principal); C73 Malignant neoplasm of thyroid gland; E89.0 Postprocedural hypothyroidism
CPT/HCPCS: 36415; 80061; 84432; 84439; 84443; 86800

== ENCOUNTER → 2022-08-04 | Outpatient (CLI) | payer OTHER ==
[2022-08-04 14:43] VITALS: BP 124/76; PULSE 81; RESP 16; TEMP 98.4; BMI 46.7
--- NOTE | 2022-08-04 15:14 | P.BASOAP ---
Subjective Progress Note Date: 08/04/22 Principal diagnosis: Morbid obesity 42-year-old female returns for recheck. Underwent sleeve gastrectomy November 19. Patient was last seen in December of last year. Patient has gained 17 pounds since then she says she has made some poor choices. She will drink a small soda at times. She says she has had some more sweets. Her restrictions she says is still good. Most recent blood work available to us looks good. Patient says she is not exercising much. She is working many hours. Objective - Vital Signs Vital signs: Vital Signs Temp 98.4 F 08/04/22 14:41 Pulse 81 08/04/22 14:41 Resp 16 08/04/22 14:41 BP 124/76 08/04/22 14:41 Pulse Ox FiO2 Intake & Output 08/03/22 08/04/22 08/04/22 18:59 06:59 18:59 Weight 127.459 kg - Exam Abdomen: Soft, nontender, nondistended Assessment/Plan (1) Morbid obesity with BMI of 50.0-59.9, adult Narrative/Plan: 42-year-old female with morbid obesity. Patient with increased weight recently. Discussed having a goal of walking 10-12,000 steps 3 times per week. Discussed possibly doing a calorie count. Plan recheck in 2 months. Plan: Date: 08/04/22 Initial Weight: 161.706 kg Initial BMI: 59.3 Current Weight: 127.459 kg Current BMI: 46.7 Type of Surgery: Vertical Sleeve Gastrectomy Total Volume in Band: Previous Volume: Volume Removed: Volume Added: Band Size:
== END ==
LOC: BARWHC3 13:59
PROVIDERS: ATTEND Surgery
DX: E66.01 Morbid (severe) obesity due to excess calories (principal); Z68.42 Body mass index [BMI] 45.0-49.9, adult; Z91.030 Bee allergy status
CPT/HCPCS: 99211

== ENCOUNTER → 2023-12-22 | Outpatient (CLI) | payer OTHER ==
--- NOTE | 2023-12-22 13:47 | XR ---
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 No abnormal joint space narrowing. Subacromial space is preserv ed. No acute fracture, subluxation, dislocation. Visualized right hemithorax is clear. Impression: Either minimal degenerative subchondral cystic change at the AC joint versus very subtle, early dista l clavicle osteolysis. Correlate for any activity that could result in repetitive microtrauma. Otherw ise, no acute osseous abnormality seen. [facility], , 12/22/2023 1:44 PM
== END | disposition home or self-care (01) ==
LOC: RADXRMAIN 11:49
PROVIDERS: ATTEND Family Medicine